=== PATIENT | female | born 1990 | race Two or more races ===

== ENCOUNTER 2024-06-06 04:17 | Emergency (ER) | payer MEDICAID, SELFPAY ==
[2024-06-06 04:21] VITALS: BMI 28.1
[2024-06-06 04:22] VITALS: BP 127/77; PULSE 75; PULSE 98; RESP 18; RESP 20; TEMP 37.5; O2SAT 98; BMI 28.1
--- NOTE | 2024-06-06 04:32 | EDRME_ITS ---
Rapid Medical Screening Exam [facility] Arrival date/time: 06/06/24 04:17 34-year-old female presents emergency department complaining of cough, sore throat, body aches, and chills for 2 days. Chief Complaint: Flu Like Symptoms Vital signs: Vital Signs Temperature 99.5 F 06/06/24 04:22 Pulse Rate 98 06/06/24 04:22 Respiratory Rate 18 06/06/24 04:22 Blood Pressure 127/77 06/06/24 04:22 Pulse Oximetry (%) 98 06/06/24 04:22 Oxygen Delivery Method Room Air 06/06/24 04:22
--- NOTE | 2024-06-06 04:33 | XR_ITS ---
Examination: PA lateral chest 2 views Technique: Upright PA lateral chest 2 views Exam date and time: June 06, 2024 0438 hrs. Comparison February 28, 2023 Indications: Coughing sore throat bodyaches chills beginning 2 days ago. Findings: Normal heart size Lungs are clear. The osseous structures are intact Impression: No active disease
[2024-06-06] MEDS: ACETAMINOPHEN 500 MG TABLET 1000 MG PO (04:58)
[2024-06-06 05:34] LABS: Strep A Rapid Negative (Negative)
--- NOTE | 2024-06-06 05:48 | EDNOTE_ITS ---
Upper Respiratory Inf. RME/HPI General Chief Complaint: Flu Like Symptoms Stated Complaint: FLU LIKE SYMPTOMS Time Seen by Provider: 06/06/24 05:06 Source: patient Arrival date/time: 06/06/24 04:17 34-year-old female KAYLEN presents emergency department complaining of cough, sore throat, body aches, and chills for 2 days. Mode of arrival: ambulatory Limitations: no limitations RME / HPI RME / HPI Narrative: 06/06/24 04:17 34-year-old female presents emergency department complaining of cough, sore throat, body aches, and chills for 2 days. Related Data Home Medications ?Medication ?Instructions ?Recorded ?Confirmed docusate sodium 100 mg capsule 100 mg PO PRN PRN Const ipation 02/06/23 02/06/23 ferrous sulfate 325 mg (65 mg 325 mg PO DAILY 02/06/23 02/06/23 iron) tablet (FeroSul) losartan 25 mg tablet 25 mg PO QDAY 02/06/2302/06 Previous Rx's ?Medication ?Instructions ?Recorded diphenhydramine HCl 25 mg capsule 25 mg PO .Nightly IA N sleep #14 02/28/23 caps cephalexin 500 mg capsule 500 mg PO TID #21 caps 07/13 acetaminophen 500 mg capsule 500 mg PO Q6H PRN pain #3 0 caps 06/06/24 ibuprofen 600 mg tablet 600 mg PO Q8H PRN pain #20 t abs 06/06/24 oseltamivir 75 mg capsule (Tamiflu) 75 mg PO Q12H 5 da ys #10 caps 06/06/24 Allergies Allergy/AdvReac Type Severity Reaction Status Date / Time No Known Allergies Allergy Verified 08/11/21 15:07 Review of Systems Review of Systems Systems Reviewed: All systems reviewed, normal except as documented Constitutional Constitutional: Reports system reviewed and no additional complaints, except as documented, Reports body ache(s), Reports chills and Denies fever(s) Eyes Eyes: Reports system reviewed and no additional complaints, except as documented and Denies change in vision ENT Ears, Nose, Mouth, and Throat: Reports system reviewed and no additional complaints, except as documented, Denies disequilibrium, Denies dizziness, Reports sore throat and Denies vertigo Cardiovascular Cardiovascular: Reports system reviewed and no additional complaints, except as documented, Denies chest pain and Denies dyspnea Respiratory Respiratory: Reports system reviewed and no additional complaints, except as documented, Denies chest congestion, Reports cough and Denies dyspnea Gastrointestinal Gastrointestinal: Reports system reviewed and no additional complaints, except as documented, Denies abdominal pain, Denies nausea and Denies vomiting Musculoskeletal Musculoskeletal: Reports system reviewed and no additional complaints, except as documented, Denies abnormal gait and Denies arthralgias Integumentary/Breasts Skin/Breast: Reports system reviewed and no additional complaints, except as documented, Denies erythema, Denies rash and Denies wounds Neurologic Neurologic: Reports system reviewed and no additional complaints, except as documented, Denies abnormal gait, Denies disequilibrium, Denies dizziness and Denies vertigo Past Medical History Past Medical History NEUROLOGIC: Negative Neurological Disorders CARDIAC: Positive Hypertension; Negative Cardiac Disorders or Congestive Heart Failure RESPIRATORY: Positive Asthma; Negative Chronic Obstructive Pulmonary Disease (COPD) GASTROINTESTINAL: Negative Gastrointestinal Disorders GENITOURINARY: Positive Genitourinary Disorders and Kidney Stones; Negative Renal Disease REPRODUCTIVE: Positive Previous Pregnancies; Negative Endometriosis, Pelvic Inflammatory Disease or Uterine Prolapse MUSCULOSKELETAL: Negative Musculoskeletal Disorders ENDOCRINE: Negative Endocrine Disorders, Diabetes Mellitus Type 1 or Diabetes Mellitus Type 2 HEMATOLOGIC: Negative Blood Disorders or Anemia PSYCHO/SOCIAL: Positive Depression and Anxiety OTHER HISTORY: Negative Blood Transfusions, Blood Transfusion Reaction, Anesthesia Reactions, Organ Transplant, Chemotherapy, Radiation Therapy, Hyperbaric Therapy, MRSA, VRSA, Vancomycin-Resistant Enterococci or Cancer Surgical History SURGICAL: Negative Cardiac Surgery, Endocrine Surgery, Thyroidectomy, Ear Surgery, Abdominal Surgery, Nephrectomy, Joint Replacement, Neurologic Surgery, Section or Organ Transplant Social History SMOKING STATUS: Former smoker SECOND HAND EXPOSURE: No SUBSTANCE USE: marijuana (Frequently) ED Exam General Limitations: Present no limitations General appearance: Present alert and in no apparent distress Head Head exam: Present atraumatic Eye Eye exam: Present normal appearance, PERRL and EOMI ENT ENT exam: Present normal exam, normal oropharynx and mucous membranes moist Neck Neck exam: Present normal inspection, full ROM and trachea midline Chest Chest inspection: Present normal inspection and symmetric chest wall rise Respiratory Respiratory exam: Present normal lung sounds bilaterally Cardiovascular Cardiovascular exam: Present regular rate, normal rhythm and normal heart sounds Abdominal Exam Abdominal exam: Present soft and normal bowel sounds Extremities Exam Extremities exam: Present normal inspection and full ROM Back Exam Back exam: Present normal inspection and full ROM Neurological Exam Neurological exam: Present alert, oriented X3 and CN II-XII intact Psychiatric Psychiatric exam: Present normal affect and normal mood Skin Skin exam: Present warm, dry, intact and normal color Course Quality Measures none Orders Category Date Time Status Bedside COVID-19 Antigen Test NOW Care 06/06/24 04:32 Completed Bedside Influenza A&B Antigen Test NOW Care 06/06/24 04:32 Completed EKG (ED ONLY) *Do not use* NOW Care 06/06/24 04:34 Completed EKG (ED Only) Stat Exams 06/06/24 04:34 Ordered XR chest 2V Stat Exams 06/06/24 04:33 Taken Strep A Rapid Stat Lab 06/06/24 04:34 Completed Acetaminophen Tab [Tylenol ES Tab] Med 06/06/24 04:34 Discontinued 1,000 mg PO X1 ONE Vital Signs Vital signs: Vital Signs Temperature 99.5 F 06/06/24 04:22 Pulse Rate 98 06/06/24 04:22 Respiratory Rate 18 06/06/24 04:22 Blood Pressure 127/77 06/06/24 04:22 Pulse Oximetry (%) 98 06/06/24 04:22 Oxygen Delivery Method Room Air 06/06/24 04:22 98% room air within normal limits Procedures -ED EKG Interpretation #1: Date of EK06/06/24 Time of EK:02 Rate: 88 Interpretation: Interpreted by me EKG Impression: Normal sinus rhythm, No acute ST-T changes, No ectopy, No ischemic changes and Normal QRS Upper Respiratory Infection MDM Narrative MDM Narrative:: 34-year-old female KAYLEN presents emergency department complaining of cough, sore throat, body aches, and chills for 2 days. ENT exam was unremarkable. No adventitious lung sounds on auscultation. Chest x-ray was unremarkable for any pneumonic infiltrates based on my interpretation. EKG sinus rhythm 88 bpm. Influenza b positive likely cause of symptoms. Patient appears nontoxic and is hemodynamically stable. Patient stable for discharge. Will treat with Tamiflu symptom onset within 48 hours. Patient data External records reviewed:: [facility] previous records Clinical information provided by:: patient Social determinants that could affect healthcare access:: none Patient has the following chronic illnesses:: See chart How is presenting disease/condition affected by chronic disease/condition?: uneffected by Evaluation data The following diagnostics were reviewed and interpreted by me:: lab results and radiology exam(s) Lab and/or radiology exams considered but not ordered:: Ordered Interpretation Summary: Interpreted by me Medications / Prescriptions Medications or Prescriptions considered but not ordered:: Ordered Medication administrations:: Medication Administration History Discontinued Medications Acetaminophen (Acetaminophen 500 Mg Tablet) 1,000 mg PO X1 ONE Stop: 06/06/24 04:35 Last Admin: 06/06/24 04:58 Dose: 1,000 mg Documented By: RC Given Consultations Consultation(s) initiated? (list below): No Diagnosis Upper Respiratory Differential Diagnosis: upper respiratory infection, otitis media, sinusitis, viral infection, bronchitis, influenza and pharyngitis Most likely diagnosis given after review of the tests above:: Influenza B Admission Indicated Admission indicated?: not indicated Admission Request Was there a request for admission?: No Disposition Plan Disposition Plan: Discharge Discharge Attestation Discharge Attestation: The patient and all family members were given an opportunity to ask questions and understood the discharge instructions. Discharge instructions specifically effects, indications for sooner follow up or return to the emergency department, and the expected course of current diagnosis. Patient condition: Stable Discharge Plan Plan Patient Disposition: HOME (Self Care) Disposition Comment: Stable Prescriptions/Referrals Prescriptions/Med Rec: New ibuprofen 600 mg tablet 600 mg PO Q8H PRN (Reason: pain) Qty: 20 0RF acetaminophen 500 mg capsule 500 mg PO Q6H PRN (Reason: pain) Qty: 30 0RF oseltamivir [Tamiflu] 75 mg capsule 75 mg PO Q12H 5 Days Qty: 10 0RF No Action diphenhydramine HCl 25 mg capsule 25 mg PO .Nightly PRN (Reason: sleep) Qty: 14 0RF cephalexin 500 mg capsule 500 mg PO TID Qty: 21 0RF ferrous sulfate [FeroSul] 325 mg (65 mg iron) tablet 325 mg PO DAILY losartan 25 mg Tablet 25 mg PO QDAY docusate sodium 100 mg capsule 100 mg PO PRN PRN (Reason: Constipation) Referrals: Mary Deluna NP [Primary Care Provider] - In 1 week Problem List Clinical Impression: Influenza B Patient/Caregiver Discharge Instructions Discharge Activity: activity as tolerated Education Materials: ED Influenza (Adult) Additional Instructions: Drink plenty of fluids and get plenty of rest. Take ibuprofen or Tylenol as needed for fever or pain. Take Tamiflu as prescribed. Follow-up with primary care provider in 2 to 3 days. Return to emergency department for any worsening symptoms or as needed. Print Language: Tanzanian Stand Alone Forms: Monik Award Info., Patient Portal Info Letter PA/BALE BREAKER OPERATOR Supervising Physician PA/BALE BREAKER OPERATOR Supervising Physician: Dr. Laura
[2024-06-06 05:57] VITALS: RESP 18
== END 2024-06-06 05:58 | disposition home or self-care (01) ==
PROVIDERS: Emergency Provider Emergency Medicine; PCP Nurse Practitioner Family
DX: J10.1 Influenza due to other identified influenza virus with other respiratory manifestations (principal)
CPT/HCPCS: 71046; 87400; 87651; 87811; 93005; 99283; A9270

== ENCOUNTER 2024-10-14 17:48 | Inpatient (IN) | payer MEDICAID, SELFPAY ==
[2024-10-14 17:49] VITALS: BP 129/86; PULSE 79; RESP 17; TEMP 36.3; O2SAT 98
[2024-10-14 17:51] VITALS: BMI 31.2
[2024-10-14 17:55] VITALS: PULSE 75; RESP 18; O2SAT 98
--- NOTE | 2024-10-14 18:18 | PD.EDADULT ---
ED General RME/HPI General Chief complaint: Back Pain/Injury Stated complaint: LOW BACK PAIN Time Seen by Provider: 10/14/24 18:13 Arrival date/time: 10/14/24 17:48 Related Data Previous Rx's ?Medication ?Instructions ?Recorded cephalexin 500 mg capsule 500 mg PO TID 10 days #30 caps 10/14/24 hydrocodone 5 mg-acetaminophen 325 1 tab PO Q6H PRN pain #10 tabs 10/14/24 mg tablet Allergies Allergy/AdvReac Type Severity Reaction Status Date / Time No Known Allergies Allergy Verified 10/14/24 20:59 ED Exam Narrative Physical exam: Physical Exam GENERAL: NAD, AAOx3 HEENT: Moist mucosa. Eyes open, symmetrical, & clear CARDIO: Heart RRR, no obvious murmurs PULM: No noted coughing/dyspnea CTA B/L, no R/W/R GI: Abdomen soft, nondistended,pain in lower quadrants SKIN/MSK/EXT: Left sided back pain, no pain on palpation. Pedal pulses present B/L NEURO: AAOx3, no focal neuro deficits, able to move all 4 extremities Course Quality Measures none Orders Category Date Time Status Place in Observation Status Routine Admission 10/14/24 20:[address] in Observation Status Routine Admission 10/14/24 21:53 Active Continuous Monitoring Routine Care 10/14/24 20:41 Ordered Insert IV NOW Care 10/14/24 18:21 Active Non-Stress Test NOW Care 10/14/24 20:41 Active Sterile Vaginal Exam PRN Care 10/14/24 20:45 Ordered Straight [In and Out Catheter] X1 Care 10/14/24 18:39 Active EKG (ED Only) Stat Exams 10/14/24 18:22 Draft US OB >= 14 weeks Fetus Stat Exams 10/14/24 19:47 Completed US renal BI Stat Exams 10/14/24 20:59 Completed Beta HCG,Quantitative Stat Lab 10/14/24 19:45 Completed CBC Stat Lab 10/14/24 19:45 Completed CBC Stat Lab 10/14/24 21:05 Completed CMP [Comprehensive Metabolic Panel] Stat Lab 10/14/24 19:45 Completed Drug Screen,Urine Stat Lab 10/14/24 19:57 Completed HCG Qualitative,Urine Stat Lab 10/14/24 22:15 Ordered HIV (1&2) Antibody Rapid Stat Lab 10/14/24 21:05 Completed Hepatitis B Surface Antigen Stat Lab 10/14/24 21:05 Completed Lactic Acid [Lactate (Lactic Acid)] Stat Lab 10/14/24 19:45 Completed Lipase Stat Lab 10/14/24 19:45 Completed Magnesium Stat Lab 10/14/24 19:45 Completed Partial Thromboplastin Time Stat Lab 10/14/24 19:45 Completed Prothrombin Time with INR Stat Lab 10/14/24 19:45 Completed Rh Testing Only Stat Lab 10/14/24 19:45 Completed Rubella, IgG Antibody Stat Lab 10/14/24 21:05 Completed Syphilis Stat Lab 10/14/24 21:05 Completed Type and Screen Stat Lab 10/14/24 21:05 Completed UA [Urinalysis] Stat Lab 10/14/24 22:15 Ordered Urine Culture Stat Lab 10/14/24 20:45 Received HYDROmorphone INJ [Dilaudid Inj] Med 10/14/24 20:58 Discontinued 2 mg IVP X1 ONE Ibuprofen Tab [Motrin Tab] Med 10/14/24 18:17 Discontinued 800 mg PO X1 ONE Morphine Inj Med 10/14/24 18:39 Discontinued 4 mg IVP X1 ONE Ondansetron Inj [Zofran Inj] Med 10/14/24 18:39 Discontinued 4 mg IVP X1 ONE Ringers Lactated 1000 ml [Lactated Ringers] 1,000 ml Med 10/14/24 20:56 Active IV 125 mls/hr Sodium Chloride 0.9% 1000 ml [Ns] 1,000 ml Med 10/14/24 18:39 Discontinued IV 999 mls/hr ceFAZolin [Ancef] 2 gm Med 10/14/24 20:59 Discontinued Sodium Chloride 0.9% [Ns] 100 ml IV X1 Vital Signs Vital signs: Vital Signs Temperature 97.4 F 10/14/24 17:49 Pulse Rate 79 10/14/24 17:49 Respiratory Rate 17 10/14/24 17:49 Blood Pressure 129/86 H 10/14/24 17:49 Pulse Oximetry (%) 98 10/14/24 17:49 Oxygen Delivery Method Room Air 10/14/24 17:49 Discharge Plan Plan Patient Disposition: Admit Acute Care w/in Hospital Problem List Clinical Impression: Abdominal pain, and infectious disease MDM Narrative MDM hospital course: 34 y/o F with no PMHX who presented to the ED due to sudden onset back pain. Patient states that symptoms started after having sexual intercourse last night and suddenly woke up in the morning with left sided back pain that is radiating to the lower abdomen. She also endorses recent constipation for x1 week. She states she think she could be as she is unsure of her LMP maybe 2 months ago. She denies fever, chills, nausea, vomiting, diarrhea, shortness of breath, palpitations, vaginal bleeding or spotting, changes in urination. 2008: Labs reviewed noted leukocytosis, lactic acid elevated, Imaging studies shows 25 week Patient was medically cleared to go to Labor and Delivery floor Clinical Information Provided by patient Medical Records Reviewed None Chronic Illness/Social Conditions which may negatively complicate care or outcome(s)-explain: None or not applicable EKG EKG Interpretation narrative: sinus rhythm, No ST changes Lab Interpretation Labs: interpreted by nc Lab(s) interpretation(s): leukocytosis, irondef anemia, lactic acidosis Imaging Imaging interpretation: none Medication Administration(s) Medication Administration History Acetaminophen (Acetaminophen 500 Mg Tablet) 1,000 mg PO Q6HR PRN PRN Reason: PAIN SCALE 1-3 (mild Stop: 11/13/24 23:30 Last Admin: 10/15/24 00:45 Dose: 1,000 mg Documented By: BY Hydromorphone HCl (Hydromorphone Inj 2 Mg/Ml Vial) 2 mg IVP Q4HR PRN PRN Reason: PAIN SCALE 7-10 (Severe Stop: 10/19/24 22:36 Lactated Ringer's (Lactated Ringers) 1,000 mls @ 125 mls/hr IV .Q8H OMAR Stop: 11/13/24 20:55 Last Admin: 10/14/24 20:57 Dose: 125 mls/hr Documented By: KG Lactated Ringer's (Lactated Ringers) 1,000 mls @ 100 mls/hr IV .Q10H [facility] Stop: 11/13/24 22:44 Lactated Ringer's (Lactated Ringers) 500 mls @ 999 mls/hr IV .Q31M PRN PRN Reason: HR tracing (Per Policy) Stop: 11/13/24 22:31 Cefazolin Sodium (Ancef 2gm Ivpb) 2 gm in 100 mls @ 100 mls/hr IV Q8HR OMAR Stop: 10/22/24 05:59 Ferric Sodium Gluconate 125 mg (/ Sodium Chloride) 110 mls @ 110 mls/hr IV X1 ONE Stop: 10/15/24 09:01 Ondansetron HCl (Ondansetron Inj 2 Mg/Ml Inj 2 Ml) 4 mg IVP Q6HR PRN; Protocol PRN Reason: NAUSEA OR VOMITING Stop: 11/13/24 22:36 Zolpidem Tartrate (Zolpidem 5 Mg Tablet) 5 mg PO HS PRN PRN Reason: INSOMNIA Stop: 11/13/24 22:58 Last Admin: 10/15/24 00:45 Dose: 5 mg Documented By: BY Discontinued Medications Acetaminophen (Acetaminophen 500 Mg Tablet) 1,000 mg PO Q6HR PRN PRN Reason: PAIN OR FEVER > 101 Stop: 11/13/24 22:55 Acetaminophen (Acetaminophen 325 Mg Tablet) 1,000 mg PO Q6HR PRN PRN Reason: PAIN SCALE 4-10(Mod-Sev Stop: 11/13/24 23:16 Hydromorphone HCl (Hydromorphone Inj 2 Mg/Ml Vial) 2 mg IVP X1 ONE Stop: 10/14/24 20:59 Last Admin: 10/14/24 21:10 Dose: 2 mg Documented By: KG Hydromorphone HCl (Hydromorphone Inj 2 Mg/Ml Vial) 2 mg IVP Q4HR PRN PRN Reason: PAIN Stop: 10/19/24 22:36 Sodium Chloride (Ns) 1,000 mls @ 999 mls/hr IV .Q1H1M ONE Stop: 10/14/24 19:39 Last Infusion: 10/14/24 20:38 Dose: Infused Documented By: Admin: 10/14/24 19:44 Dose: 999 mls/hr Documented By: BD Cefazolin Sodium 2 gm/ Sodium (Chloride) 100 mls @ 200 mls/hr IV X1 ONE Stop: 10/14/24 21:28 Last Admin: 10/14/24 21:13 Dose: 200 mls/hr Documented By: KG Ferric Sodium Gluconate 125 mg (/ Sodium Chloride) 110 mls @ 110 mls/hr IV X1 ONE Stop: 10/14/24 23:22 Ibuprofen (Ibuprofen Tab 400 Mg Tablet) 800 mg PO X1 ONE Stop: 10/14/24 18:18 Last Admin: 10/14/24 18:49 Dose: Not Given Documented By: ER Non-Admin Reason: Discontinued Morphine Sulfate (Morphine Sulf Inj 10 Mg/Ml Vial) 4 mg IVP X1 ONE Stop: 10/14/24 18:40 Last Admin: 10/14/24 19:43 Dose: 4 mg Documented By: BD Ondansetron HCl (Ondansetron Inj 2 Mg/Ml Inj 2 Ml) 4 mg IVP X1 ONE; Protocol Stop: 10/14/24 18:40 Last Admin: 10/14/24 19:43 Dose: 4 mg Documented By: BD see above Diagnosis Differential diagnosis: pre-term labor, kidney stones, pyelonephritis Dispositon Disposition comments: Medically cleared can have further work up in Labor and Delivery floor.
--- NOTE | 2024-10-14 18:22 | EKG_ITS ---
[facility] Test Date: 2024-10-14 Pat Name: NOAH BOOTHE Department: Room: - Gender: Female Equestrian Trainer: : 1990 Requested By: Srinivasan Arroyo Order Number: [id number] Reading MD: Srinivasan Arroyo Measurements Intervals [place] Rate: 72 P: 265 MD: 125 QRS: 1 QRSD: 79 T: 34 QT: 414 QTc: 453 Interpretive Statements JUNCTIONAL RHYTHM ABNORMAL RHYTHM ECG Compared to ECG 02/28/2023 17:10:40 Junctional rhythm now present Sinus rhythm no longer present T-wave abnormality no longer present /store/S0/[id number].pdf
[2024-10-14] MEDS: ONDANSETRON INJ 2 MG/ML INJ 2 ML 4 MG IVP (19:43)
[2024-10-14] MEDS: MORPHINE SULF INJ 10 MG/ML VIAL 4 MG IVP (19:43)
[2024-10-14] MEDS: SODIUM CHLORIDE 0.9% 1000 ML 1,000 ML 999 ML IV (19:44)
--- NOTE | 2024-10-14 19:47 | XR_ITS ---
Examination: Complete OB ultrasound greater than 14 weeks Date and time of exam: October 14, 2024, 195 hours INDICATIONS: Pelvic pain and lower back pain today Findings: Viable intrauterine single fetus with single amniotic sac presentation cephalic Cardiac motion 138 BPM Placenta anterior grade 1 Umbilical cord insertion 3 vessel. Amniotic fluid index 12.9 cm spine maternal left Cervix 4.3 cm Ovaries obscured by bowel gas. Composite estimated gestational age based on BPD, head circumference, abdominal circumference, femur length is 26 weeks 2 days Estimated weight 986.5 g. Survey of intracranial anatomy, spinal anatomy, abdominal anatomy, four-chamber heart performed with no abnormalities identified. Impression: Viable intrauterine gestation cephalic presentation.
[2024-10-14 20:00] LABS: Lactate (Lactic Acid) 2.1 mMol/L (0.4-2.0)
[2024-10-14 20:01] LABS: Basophils # (Auto) 0.1 Thou/mm3 (0.0-0.2); Basophils % (Auto) 0 % (0-2.5); Eosinophils # (Auto) 0.1 Thou/mm3 (0.0-0.5); Eosinophils % (Auto) 1 % (0-10); Hematocrit 28.7 % (36.0-46.0); Hemoglobin 8.9 g/dL (12.0-16.0); Immature Granulocytes Auto 0.07 Thou/mm3 (0.00-0.00); Lymphocytes # (Auto) 1.6 Thou/mm3 (1.0-4.8); Lymphocytes % (Auto) 13 % (10-50); Mean Corpuscular HGB Conc 31.0 g/dl (31.0-37.0); Mean Corpuscular Hemoglobin 23.4 pg (25.0-35.0); Mean Corpuscular Volume 75 fL (80-100); Monocytes # (Auto) 0.6 Thou/mm3 (0.0-0.8); Monocytes % (Auto) 5 % (0-12); Neutrophils # (Auto) 9.9 Thou/mm3 (1.8-7.7); Neutrophils % (Auto) 81 % (37-80); Nucleated Red Blood Cell # 0.00 Thou/mm3 (0.00-0.00); Nucleated Red Blood Cell % 0 /100 WBC (0); Platelet Count 388 Thou/mm3 (140-440); RDW Standard Deviation 42.5 fL (36.4-46.3); Red Blood Count 3.81 Miln/mm3 (4.00-5.20); White Blood Count 12.2 Thou/mm3 (3.6-11.0)
[2024-10-14 20:07] LABS: Collection Type, Urine Clean Catch
[2024-10-14 20:12] LABS: Amorphous Crystals,Urine Present (Absent); Bacteria,Urine Rare; Bilirubin,Urine Negative (Negative); Blood,Urine Negative (Negative); Clarity,Urine Clear (Clear/Hazy); Color,Urine Lt-Yellow (Lt Yel-Yel); Glucose, Urine Negative (Negative); Ketones,Urine Negative (Negative); Leukocyte Esterase,Urine Positive (Negative); Nitrite,Urine Negative (Negative); PH,Urine 6.5 (5.0-7.0); Protein,Urine Negative (Neg - Trace); RBC,Urine 5 /hpf (0-3); Specific Gravity,Urine 1.015 (1.001-1.035); Squamous Epithelial Cell,Urine 8 /hpf (0-5); Urobilinogen,Urine Negative mg/dL (0.0-1.0); WBC,Urine 11 /hpf (0-5)
[2024-10-14 20:19] LABS: INR 0.9 (0.9-1.3); Partial Thromboplastin Time 25.9 Seconds (22.0-36.0); Prothrombin Time 10.3 Seconds (9.0-12.2)
[2024-10-14 20:26] LABS: Alanine Aminotransferase 9 U/L (10-49); Albumin, Serum 4.0 gm/dL (3.5-5.0); Albumin/Globulin Ratio 1.5 (1.2-2.2); Alkaline Phosphatase 83 U/L (46-116); Anion Gap 9 (7-16); Aspartate Amino Transferase 13 U/L (0-34); BUN/Creatinine Ratio 10 Ratio (12-20); Bilirubin,Total 0.5 mg/dL (0.3-1.2); Blood Urea Nitrogen 6 mg/dL (9-23); Calcium 9.3 mg/dL (8.3-10.6); Calcium (Corrected) 9.3 mg/dL (8.5-10.1); Carbon Dioxide 23.5 mMol/L (20.0-31.0); Chloride 109 mMol/L (98-107); Creatinine (Component) 0.6 mg/dL (0.6-1.3); Estimated Creatinine Clearance 116.4 mL/min (>60); Globulin 2.6 gm/dL (2.3-3.5); Glucose 108 mg/dL (74-106); Lipase 31 U/L (12-53); Magnesium 1.5 mg/dL (1.6-2.6); Osmolality,Calculated 279 (275-295); Potassium 3.5 mMol/L (3.4-5.1); Sodium 141 mMol/L (136-145); Total Protein 6.6 gm/dL (5.7-8.2); eGFR > 60 See Note
[2024-10-14 20:41] VITALS: BMI 30.8
--- NOTE | 2024-10-14 20:41 | PC.NURSE ---
pt left up to ob at 2039
[2024-10-14 20:52] LABS: Amphetamine/Methamp Scrn,U Positive (Negative); Barbiturate Screen,Urine Negative (Negative); Benzodiazepines Screen,Urine Negative (Negative); Benzoylecgonine Screen, Ur Negative (Negative); Fentanyl Screen,Urine Negative (Negative); Opiate Screen,Urine Negative (Negative); THC Screen,Urine Positive (Negative)
[2024-10-14] MEDS: RINGERS LACTATED 1000 ML 1,000 ML 125 ML IV (20:57)
[2024-10-14 20:58] VITALS: BP 139/91; PULSE 72; RESP 100; RESP 20; TEMP 36.5
--- NOTE | 2024-10-14 20:59 | XR_ITS ---
Examination: Retroperitoneal ultrasound, complete Technique: Multiple high resolution grayscale images of the retroperitoneum obtained, including kidneys and bladder. Exam date and time:October 24, 2024 1057 hours INDICATIONS: Bilateral flank pain today FINDINGS: Right kidney 14.7 cm renal cortex 1.9 cm Mild right hydronephrosis Multiple renal calculi, including 9 mm in the mid pole Left kidney 14.1 cm cortex 1.6 cm Moderate hydronephrosis [id number] bilateral linear parenchymal scar formation No bladder mass, bladder prevoid volume 395.8 cc IMPRESSION: Mild right and moderate left hydronephrosis Right renal calculi, the largest in the midpole 9 mm
[2024-10-14 21:01] LABS: Beta HCG,Quantitative 35162 mIU/mL (<5.0)
[2024-10-14] MEDS: HYDROmorphone INJ 2 MG/ML VIAL IVP (21:10)
[2024-10-14 21:18] LABS: Basophils # (Auto) 0.0 Thou/mm3 (0.0-0.2); Basophils % (Auto) 0 % (0-2.5); Eosinophils # (Auto) 0.0 Thou/mm3 (0.0-0.5); Eosinophils % (Auto) 0 % (0-10); Hematocrit 26.8 % (36.0-46.0); Immature Granulocytes Auto 0.06 Thou/mm3 (0.00-0.00); Lymphocytes # (Auto) 1.1 Thou/mm3 (1.0-4.8); Lymphocytes % (Auto) 9 % (10-50); Mean Corpuscular HGB Conc 31.7 g/dl (31.0-37.0); Mean Corpuscular Hemoglobin 23.7 pg (25.0-35.0); Mean Corpuscular Volume 75 fL (80-100); Monocytes # (Auto) 0.5 Thou/mm3 (0.0-0.8); Monocytes % (Auto) 4 % (0-12); Neutrophils # (Auto) 11.2 Thou/mm3 (1.8-7.7); Neutrophils % (Auto) 86 % (37-80); Nucleated Red Blood Cell # 0.00 Thou/mm3 (0.00-0.00); Nucleated Red Blood Cell % 0 /100 WBC (0); Platelet Count 364 Thou/mm3 (140-440); RDW Standard Deviation 42.7 fL (36.4-46.3); Red Blood Count 3.58 Miln/mm3 (4.00-5.20); White Blood Count 12.9 Thou/mm3 (3.6-11.0)
[2024-10-14 21:21] LABS: Hemoglobin 8.5 g/dL (12.0-16.0)
--- NOTE | 2024-10-14 21:29 | ESPR_ITS ---
Addendum Progress Note Addendum Date of report being addended: 10/14/24 Narrative: The patient is a 34-year-old who thought her last menstrual period was sometime in April who presented to the ER with flank tenderness and lower abdominal pain earlier today. Per the ER notes notes, she has a history of pyelonephritis and kidney stones. She is approximately 25 to 26 weeks today by an ultrasound performed in the ER. She denies vaginal bleeding loss of fluids or contractions. She has had no care this . Her drug screen has been positive for marijuana in the past. She was sent up to the ER once they found out she was 25 weeks for further management. On evaluation in triage, the patient is quite uncomfortable reporting left flank tenderness. She denies nausea or vomiting, she is quite thirsty. She denied fevers or chills. Her exam is suggestive of early pyelonephritis versus nephrolithiasis. Her labs from the ER reviewed revealing a white count of 12.2 with a a neutrophil percentage of 81%. She is anemic with a hemoglobin 8.9 platelets are normal her electrolyte panel is normal her BUN/creatinine is normal her AST LFT is normal her temperature in the ER is 97 4. Her blood pressure is stable. Her urinalysis reveals some red cells and white cells. Urine culture was sent down. The plan will be for renal ultrasound, IV fluids and Ancef. IV pain meds as needed. Hopefully the patient will be able to go home on p.o. pain medication to establish care with an NEEDLE PUNCH MACHINE OPERATOR HELPER. On admission her abdomen is gravid nontender she has some flank tenderness of her left side more than her right side. She appears older than her stated age. She is pale. Extremities show no significant edema or erythema. Drug screen tonight came back positive for methamphetamines and marijuana. The patient will have all labs ordered.
--- NOTE | 2024-10-14 21:54 | PD.LDANTE ---
Documentation for date of: 10/14/24 OB Labor/Induct. HPI History of Present Illness Chief complaint: Flank pain, 26 weeks : 7 Para: 4 Term pregnancies: 3 pregnancies: 1 Living children: 4 History of Abortions: Spontaneous and Elective: 1 History of Vaginal deliveries: 5 History of sections: No History of : No MARYELLEN: 01/18/25 Gestational Age (weeks): 25 History of present illness: Patient is a 34-year-old (?) G7P 3799 who presented to the ER with flank pain. She did not know she was until today. She is approximately 25 weeks . Her exam and history are suggestive of pyelonephritis versus nephrolithiasis. She was admitted for IV pain control and IV antibiotics. Of note, she has had no care this . All labs were drawn and pending. She has a live intrauterine with a normal structural survey measuring 25-1/2 weeks from this evening. She is requiring IV doses of Dilaudid. She is afebrile. Her white count is 12.2 with 81% neutrophils. Her urine has some red cells and white cells. Her drug screen is positive for methamphetamines and marijuana. History of Present Dating criteria: based on 2nd trimester US only Adequate Care: No Ultrasounds: other (Normal limited 25-week ultrasound tonight) Obstetrical complications: gestational hypertension Narrative: Patient has a history of kidney stones, pyelonephritis, hypertension and preeclampsia. She has had no care this . She has current polysubstance abuse. She also has a history of Zoloft and an accidental overdose of Zoloft per ER notes. Labs Maternal Blood Type: O Pos Labs: Unknown: RPR, Hepatitis B, Rubella Titre, HIV, Chlamydia, Gonorrhea, Herpes Type 1, Herpes Type 2, Group Beta Strep and Covid-19 Review of Systems Review of Systems Narrative Review of Systems: Patient reports flank pain. No fevers or chills. No diarrhea. No bleeding no loss of fluids she is abran on the monitor Past Medical History Surgical History SURGICAL: Negative Section Meds Home Medications and Allergies Allergies Allergy/AdvReac Type Severity Reaction Status Date / Time No Known Allergies Allergy Verified 10/14/24 20:59 OB Exam Physical Exam Vital signs: Temp Pulse Resp BP Pulse Ox O2 Del Method 97.7 F 72 20 139/91 H 98 Room Air 10/14/24 20:58 10/14/24 20:58 10/14/24 20:58 10/14/24 20:58 10/14/24 17:49 10/14/24 17:49 Narrative: Patient is in a lot of pain. Requiring IV Dilaudid. She does answer questions appropriately Detailed Labor and Delivery Exam monitor accelerations: 10x10 monitor decelerations: None senior care variability: Average (6-10) Contraction frequency (min): Irregular Tachysystole: No Contraction intensity: Mild OB Results Labs 10/14/24 21:05 10/14/24 19:45 Labs: Short CBC 10/14/24 10/14/24 Range/Units 19:45 21:05 WBC 12.2 H 12.9 H (3.6-11.0) Thou/mm3 Hgb 8.9 L 8.5 L (12.0-16.0) g/dL Hct 28.7 L 26.8 L (36.0-46.0) % Plt Count 388 364 (140-440) Thou/mm3 BMP 10/14/24 19:45 Sodium 141 Potassium 3.5 Chloride 109 H Carbon Dioxide 23.5 BUN 6 L Creatinine 0.6 Glucose 108 H Calcium 9.3 Liver Function 10/14/24 Range/Units 19:45 Total Bilirubin 0.5 (0.3-1.2) mg/dL AST 13 (0-34) U/L ALT 9 L (10-49) U/L Alkaline Phosphatase 83 (46-116) U/L Albumin 4.0 (3.5-5.0) gm/dL Urine 10/14/24 Range/Units 19:57 Urine Color Lt-Yellow (Lt Yel-Yel) Urine Clarity Clear (Clear/Hazy) Urine pH 6.5 (5.0-7.0) Ur Specific [place] 1.015 (1.001-1.035) Urine Protein Negative (Neg - Trace) Urine Glucose (UA) Negative (Negative) OB Assessment & Plan Assessment and Plan (1) Supervision of high risk in third trimester: Status: Acute (2) Kidney stones: Status: Acute (3) Pyelonephritis: Status: Acute (4) AMA (advanced maternal age) multigravida 35+: Status: Acute (5) No care in current in second trimester: Status: Acute (6) Polysubstance abuse: Status: Acute Additional Plan Additional Plan Comment: Admit patient. IV pain meds as needed. Ancef for now. Await urine cultures.
[2024-10-14 22:01] LABS: Hepatitis B Surface Antigen Non Reactive (Non React); Rubella, IgG Antibody Reactive (Immune)
[2024-10-14 22:04] LABS: Syphilis Nonreactive (Nonreactive)
[2024-10-14 22:35] VITALS: BMI 30.7
[2024-10-14 22:54] LABS: HIV (1&2) Antibody Rapid Non-Reactive
[2024-10-14 22:55] LABS: Reflex Lactate? Y
[2024-10-14 23:30] VITALS: BP 134/85; PULSE 68; RESP 18; TEMP 36.4; O2SAT 99
[2024-10-15] VITALS (9 sets, daily range): BP systolic 93–122; BP diastolic 55–70; PULSE 81–98; RESP 18–20; TEMP 36.2–37.1; O2SAT 100
[2024-10-15] MEDS: ZOLPIDEM 5 MG TABLET PO ×2 (00:45→20:45)
[2024-10-15] MEDS: ACETAMINOPHEN 500 MG TABLET 1000 MG PO ×3 (00:45→12:36)
[2024-10-15] MEDS: ceFAZolin/D5W 2 GM IV 2 GM/100 ML BAG IV (04:54)
[2024-10-15] MEDS: HYDROmorphone INJ 2 MG/ML VIAL 1 MG IVP ×2 (06:01→20:41)
--- NOTE | 2024-10-15 07:48 | ESPR_ITS ---
Documentation for date of: 10/15/24 BUILDING MAINTENANCE SUPERVISOR Subjective Subjective Interval history: Patient is a 34-year-old (?) G7P 9090 who presented to the ER with flank pain. She did not know she was until today. She is approximately 25 weeks . Her exam and history are suggestive of pyelonephritis versus nephrolithiasis. She was admitted for IV pain control and IV antibiotics. Of note, she has had no care this . All labs were drawn and pending. She has a live intrauterine with a normal structural survey measuring 25-1/2 weeks from this evening. She is requiring IV doses of Dilaudid. She is afebrile. Her white count is 12.2 with 81% neutrophils. Her urine has some red cells and white cells. Her drug screen is positive for methamphetamines and marijuana. Exam Vital Signs Temp Pulse Resp BP Pulse Ox O2 Del Method 97.2 F 98 18 121/70 100 Room Air 10/15/24 06:15 10/15/24 04:35 10/15/24 04:35 10/15/24 04:35 10/15/24 04:35 10/15/24 04:35 Narrative Exam Patient feels better after IV antibiotics and pain medications. She is tolerating a regular diet. She is voiding without difficulty she is passing flatus. She is got flank pain worse on the left Routine Respiratory Exam Comments: Clear to auscultation bilaterally Routine Cardiovascular Exam Comments: Regular rate and rhythm Routine Abdominal Exam Comments: Gravid consistent with 25 weeks gestation Routine Extremities Exam Comments: Nontender or edema Urinary Catheter Management Cath placed during this visit: no BUILDING MAINTENANCE SUPERVISOR - PN: Obj Data Labs 10/14/24 21:05 10/14/24 19:45 Labs: Laboratory Results - last 24 hr 10/14/24 10/14/24 10/14/24 19:45 19:57 21:05 WBC 12.2 H 12.9 H RBC 3.81 L 3.58 L Hgb 8.9 L 8.5 L Hct 28.7 L 26.8 L MCV 75 L 75 L MCH 23.4 L 23.7 L MCHC 31.0 31.7 RDW Std Deviation 42.5 42.7 Plt Count 388 364 Neut % (Auto) 81 H 86 H Lymph % (Auto) 13 9 L [place] % (Auto) 5 4 Eos % (Auto) 1 0 Baso % (Auto) 0 0 Neut # (Auto) 9.9 H 11.2 H Lymph # (Auto) 1.6 1.1 [place] # (Auto) 0.6 0.5 Eos # (Auto) 0.1 0.0 Baso # (Auto) 0.1 0.0 Immature Gran # (Auto) 0.07 H 0.06 H Absolute Nucleated RBC 0.00 0.00 Immature Gran % 1 H 1 H Nucleated RBC % 0 0 PT 10.3 INR 0.9 APTT 25.9 Sodium 141 Potassium 3.5 Chloride 109 H Carbon Dioxide 23.5 Anion Gap 9 BUN 6 L Creatinine 0.6 Estim Creat Clear Calc 116.4 eGFR > 60 BUN/Creatinine Ratio 10 L Glucose 108 H Calculated Osmolality 279 Lactic Acid 2.1 H Calcium 9.3 Corrected Calcium 9.3 Magnesium 1.5 L Total Bilirubin 0.5 AST 13 ALT 9 L Alkaline Phosphatase 83 Total Protein 6.6 Albumin 4.0 Globulin 2.6 Albumin/Globulin Ratio 1.5 Lipase 31 Beta HCG, Quant 10930 Ur Collection Type Clean Catch Urine Color Lt-Yellow Urine Clarity Clear Urine pH 6.5 Ur Specific [place] 1.015 Urine Protein Negative Urine Glucose (UA) Negative Urine Ketones Negative Urine Blood Negative Urine Nitrite Negative Urine Bilirubin Negative Urine Urobilinogen (Auto) Negative Ur Leukocyte Esterase Positive Urine RBC 5 H Urine WBC 11 H Ur Squamous Epith Cells 8 H Amorphous Crystals Present A Urine Bacteria Rare Urine Opiates Screen Negative Urine Fentanyl Screen Negative Ur Barbiturates Screen Negative U Amphetamin/Meth Scrn Positive A U Benzodiazepines Scrn Negative U Cocaine Metab Screen Negative U Marijuana (THC) Screen Positive A Syphilis Serology Nonreactive Hep Bs Antigen Non Reactive HIV 1&2 Antibody Rapid Non-Reactive Rubella IgG Antibody Reactive (Immune) Blood Type O Positive Rh Interpretation Positive Antibody Screen NEGATIVE Blood Bank Wristband ID Yes BUILDING MAINTENANCE SUPERVISOR - A/P Assessment and plan (1) Supervision of high risk in third trimester: Status: Acute (2) Kidney stones: Status: Acute Assessment and plan: Strain urine Opioid analgesic as needed (3) Pyelonephritis: Status: Acute Assessment and plan: Change antibiotic coverage to Rocephin 2 g every 24 hours DC Ancef. (4) AMA (advanced maternal age) multigravida 35+: Status: Acute (5) No care in current in second trimester: Status: Acute (6) Polysubstance abuse: Status: Acute Time Spent With Patient Time: Total time spent is greater than 50% in coordination of care (as documented) at patient's floor/unit and/or counseling patient: Time with patient: 25 - 35 minutes
[2024-10-15] MEDS: cefTRIAXone 2 GM in SODIUM CHLORIDE 0.9% (Popper) 50 ML IV (08:32)
[2024-10-15] MEDS: FERRIC SOD GLUC INJ 125 MG in SODIUM CHLORIDE 0.9% 100 ML 110 MG IV (09:26)
[2024-10-15] MEDS: HYDROmorphone INJ 2 MG/ML VIAL IVP (16:56)
[2024-10-15] MEDS: ACETAMINOPHEN IVPB 1,000 MG/100 ML VIAL 250 MG IV (20:45)
[2024-10-15] MEDS: ONDANSETRON INJ 2 MG/ML INJ 2 ML 4 MG IVP (20:50)
[2024-10-15] MEDS: RINGERS LACTATED 1000 ML 1,000 ML 125 ML IV (21:12)
[2024-10-16 00:14] VITALS: BP 112/58; PULSE 81; RESP 18; TEMP 37.1
[2024-10-16 04:19] VITALS: RESP 18; TEMP 36.9
[2024-10-16] MEDS: RINGERS LACTATED 1000 ML 1,000 ML 125 ML IV (05:35)
[2024-10-16] MEDS: ACETAMINOPHEN IVPB 1,000 MG/100 ML VIAL 250 MG IV (05:36)
[2024-10-16 08:55] VITALS: BP 114/53; PULSE 80; RESP 16; TEMP 36.9
--- NOTE | 2024-10-16 08:57 | ESPR_ITS ---
Documentation for date of: 10/16/24 HEAVY ANTIARMOR WEAPONS INFANTRYMAN Subjective Subjective Interval history: Patient has been afebrile for over 24 hours. No fevers or subjective chills. Interval history: Patient is a 34-year-old (?) G7P 3324 who presented to the ER with flank pain. She did not know she was until today. She is approximately 25 weeks . Her exam and history are suggestive of pyelonephritis versus nephrolithiasis. She was admitted for IV pain control and IV antibiotics. Of note, she has had no care this . All labs were drawn and pending. She has a live intrauterine with a normal structural survey measuring 25-1/2 weeks from this evening. She is requiring IV doses of Dilaudid. She is afebrile. Her white count is 12.2 with 81% neutrophils. Her urine has some red cells and white cells. Her drug screen is positive for methamphetamines and marijuana. Exam Vital Signs Temp Pulse Resp BP Pulse Ox O2 Del Method 98.4 F 81 18 112/58 L 100 Room Air 10/16/24 04:19 10/16/24 00:14 10/16/24 04:19 10/16/24 00:14 10/15/24 20:30 10/15/24 04:35 Constitutional Constitutional: no acute distress Routine HEENT Exam Head: Present normocephalic and atraumatic Eye: Present EOMI and PERRL ENT: Present mucous membranes moist Routine Neck Exam Neck: Present supple and trachea midline Routine Respiratory Exam Respiratory: Present chest non-tender, lungs clear, normal breath sounds and no resp distress Routine Cardiovascular Exam Cardiovascular: Present RRR Routine Abdominal Exam Abdominal: Present soft and normoactive bowel sounds Routine Extremities Exam Extremities: Present full ROM Routine Skin Exam Skin: Present intact and dry Routine Neurological Exam Neurological: Present alert, oriented X3 and CN II-XII intact Routine Psychiatric Exam Psychiatric: Present normal affect and normal thought process Urinary Catheter Management Cath placed during this visit: no HEAVY ANTIARMOR [employer] INFANTRYMAN - PN: Obj Data Labs 10/14/24 21:05 10/14/24 19:45 HEAVY ANTIARMOR [employer] INFANTRYMAN - A/P Assessment and plan (1) Supervision of high risk in third trimester: Status: Acute (2) Kidney stones: Status: Acute (3) Pyelonephritis: Status: Acute (4) AMA (advanced maternal age) multigravida 35+: Status: Acute (5) No care in current in second trimester: Status: Acute Assessment and plan: Discharge home on oral antibiotics. Patient provided information for facilities where she can establish URGENT CARE care ER precautions reviewed for return to the hospital if any new symptoms arise or there is worsening of her fever or pain (6) Polysubstance abuse: Status: Acute Time Spent With Patient Time: Total time spent is greater than 50% in coordination of care (as documented) at patient's floor/unit and/or counseling patient: Time with patient: less than 15 minutes
--- NOTE | 2024-10-16 08:59 | PD.LDDS ---
DS: Providers Provider Date of admission: 10/14/24 22:32 Primary care physician: Physician No Primary/Family Admitting Provider: Irlanda Dolan MD ([facility]) Attending Provider on Admission: Tahir Christensen MD Attending Provider on DC: Tahir Christensen MD Discharging Provider: Tahir Christensen MD DS: Diagnosis Discharge Diagnosis (1) Polysubstance abuse: Status: Acute (2) No care in current in second trimester: Status: Acute (3) AMA (advanced maternal age) multigravida 35+: Status: Acute (4) Kidney stones: Status: Acute Problem List Completed Was Problem List Reviewed/Reconciled?: Yes Summary/Hosp Course Brief History: Patient has been afebrile for over 24 hours. No fevers or subjective chills. Interval history: Patient is a 34-year-old (?) G7P 0506 who presented to the ER with flank pain. She did not know she was until today. She is approximately 25 weeks . Her exam and history are suggestive of pyelonephritis versus nephrolithiasis. She was admitted for IV pain control and IV antibiotics. Of note, she has had no care this . All labs were drawn and pending. She has a live intrauterine with a normal structural survey measuring 25-1/2 weeks from this evening. She is requiring IV doses of Dilaudid. She is afebrile. Her white count is 12.2 with 81% neutrophils. Her urine has some red cells and white cells. Her drug screen is positive for methamphetamines and marijuana. Time Spent with Patient Time attestation: Total time spent providing and/or coordinating discharge services: Exam Vital Signs Temp Pulse Resp BP Pulse Ox O2 Del Method 98.4 F 81 18 112/58 L 100 Room Air 10/16/24 04:19 10/16/24 00:14 10/16/24 04:19 10/16/24 00:14 10/15/24 20:30 10/15/24 04:35 Discharge Plan Plan Patient Disposition: HOME (Self Care) Patient condition on transfer: Stable Prescriptions/Referrals Prescriptions/Med Rec: New hydrocodone-acetaminophen 5-325 mg tablet 1 tab PO Q6H MDD 4 PRN (Reason: pain) Qty: 10 0RF cephalexin 500 mg capsule 500 mg PO TID 10 Days Qty: 30 0RF Referrals: No Primary/Family,Physician [Primary Care Provider] - Patient/Caregiver Discharge Instructions Meds to Beds: Yes Discharge Activity: activity as tolerated Education Materials: Back Pain During , What Is Care?, Anemia During , Addiction Ask These Questions, Addiction: Getting Help, Addiction Recovery Counseling, Be Smoke-Free During , ED Kidney Stone w/ Colic Print Language: [place] Stand Alone Forms: Monik Award Info., Patient Portal Info Letter Discharge Order Discharge Orders: Discharge (Routine); Ordered 10/16/24 Ordered By: Tahir Christensen Planned Discharge Date 10/16/24
== END 2024-10-16 09:45 | disposition home or self-care (01) | DRG 566 ==
LOC: SERX 20:36 → S4SX 20:43
PROVIDERS: Admitting Provider Obstetrics & Gynecology; Emergency Provider Student in an Organized Health Care Education/Training Program; Visit Provider Obstetrics & Gynecology
DX: O23.02 Infections of kidney in pregnancy, second trimester (principal); N20.0 Calculus of kidney; Z3A.26 26 weeks gestation of pregnancy; O13.9 Gestational [pregnancy-induced] hypertension without significant proteinuria, unspecified trimester; O26.832 Pregnancy related renal disease, second trimester; O99.012 Anemia complicating pregnancy, second trimester; O99.282 Endocrine, nutritional and metabolic diseases complicating pregnancy, second trimester; Z87.442 Personal history of urinary calculi; E87.20 Acidosis, unspecified
CPT/HCPCS: 36415; 59025; 76770; 76805; 80053; 80307; 81001; 81025; 83605; 83690; 83735; 83880; 84702; 85025; 85610; 85730; 86703; 86762; 86780; 86850; 86900; 86901; 87077; 87086; 87186; 87340; 96361; 96374; 96375; 99284; J0131; J0689; J0690; J0696; J1171; J2270; J2405; J2916; J7030; J7050; J7120; A9270

== ENCOUNTER 2024-12-08 15:30 | Outpatient (CLI) | payer MEDICAID, SELFPAY ==
[2024-12-08 15:47] VITALS: BMI 32.1
--- NOTE | 2024-12-08 15:53 | XR_ITS ---
Examination: Biophysical profile, ultrasound Date and time of exam: December 08, 2024, 1609 hrs. Indications: Onset pelvic pressure today. Technique: Multiple transabdominal sonographic images of the pelvis abdomen obtained. Attention is directed to the breathing movement, gross body movement, amniotic fluid volume and tone. Findings: Amniotic fluid index 11.7 cm. Total biophysical profile is 8 of 8. breathing movement is 2. Gross body movement is 2. tone is 2. Qualitative amniotic fluid volume is 2 Impression: Biophysical profile is 8 of 8.
[2024-12-08 15:54] VITALS: BP 117/62; PULSE 86; RESP 18; RESP 98; TEMP 36.7
[2024-12-08 16:22] VITALS: BP 124/79; PULSE 72
[2024-12-08 16:31] LABS: ROM Kit Exp Date# 01/18/28; ROM Kit Lot # 58104371; ROM Swab Mixed By: FS; Rupture of Fetal Membranes Negative (Negative); Swb Mxed in Solvent 1 min? Yes
[2024-12-08 16:49] LABS: FFN Specimen Descripton Clr Colrless Aqueous; Fetal Fibronectin Positive (Negative)
[2024-12-08 16:52] VITALS: BP 128/81; PULSE 77
[2024-12-08] MEDS: BETAMET ACET/BETAMET NA PH (Celestone) 6 MG/ML VIAL 12 MG IM (16:52)
[2024-12-08 17:22] VITALS: BP 114/66; PULSE 73
[2024-12-09 11:09] LABS: BVAG Candida Positive (Negative); Bacterial Vaginosis Markers Negative (Negative); Candida glabrata Negative (Negative); Candida krusei PCR Negative (Negative); Trichomonas Negative (Negative)
== END 2024-12-08 18:03 | disposition home or self-care (01) ==
LOC: S4S1 15:31 → S4SX 15:31
PROVIDERS: Referring Provider Specialist; Visit Provider Specialist
DX: O26.893 Other specified pregnancy related conditions, third trimester (principal); Z3A.34 34 weeks gestation of pregnancy; R10.2 Pelvic and perineal pain
CPT/HCPCS: 59025; 76819; 81514; 82731; 84112; 96372; J0702

== ENCOUNTER 2024-12-13 15:47 | Observation (INO) | payer MEDICAID, SELFPAY ==
[2024-12-13 16:00] VITALS: BMI 31.2
[2024-12-13 16:12] VITALS: BP 126/86; PULSE 100
[2024-12-13 16:14] VITALS: BP 126/86; PULSE 100; RESP 18; RESP 99; TEMP 37.1
[2024-12-13 16:29] VITALS: BP 108/59; PULSE 86
[2024-12-13 16:44] VITALS: BP 115/54; PULSE 89
[2024-12-13 16:56] LABS: ROM Kit Exp Date# 011828; ROM Kit Lot # 5810437; ROM Swab Mixed By: NUNEE1; Swb Mxed in Solvent 1 min? Yes
[2024-12-13 16:58] LABS: Rupture of Fetal Membranes Negative (Negative)
[2024-12-13 16:59] VITALS: BP 117/76; PULSE 94
[2024-12-13 17:15] VITALS: BP 126/80; PULSE 97
--- NOTE | 2024-12-13 17:22 | ESPR_ITS ---
Documentation for date of: 12/13/24 OB Labor Progress Note Pelvic Exam Amniotic membrane status: Leaking Assessment and Plan Comments: Triage Note Marielos is a 34yo with SIUP at approx 34wk presenting to L&D for leakage of fluid, low back pain. No regular ctx, no vaginal bleeding. Normal movement. She was seen on 12/08 for similar complaints and had +Candidiasis swab, but has not yet treated herself. complicated by: No care UDS +methamphetamines and THC on 10/14/24 Admission for pyelonephritis at 25wk AMA (age 34) ROS negative other than what was described above. Vitals wnl, afebrile General: well developed, well nourished, no acute distress, conversant Cardiac: normal heart rate Lungs: breathing without distress Abdomen: soft, gravid, non-tender, no rebound or guarding Extremities: no edema of BLE SCE: ft/thick/high NST: Reactive, +accels, no decels, mod tom Cesar [place]avez: no regular ctx pattern Labs: Amnisure: negative (on 12/08 and again today 12/13) +Candidiasis on 12/08 Assessment: Marielos is a 34yo with SIUP at approx 34wk with no evidence of PPROM or labor. AmniSure negative. Vitals wnl, benign exam. Reassuring status. Plan: -supervisor lending activities 7 day [id number] monostat (or generic) vaginal candidiasis treatment and take full course -Establish OB care immediately. Call [facility] to get an appointment. -Discussed return precautions -Safe for discharge home at this time Ronda Alonso MD
== END 2024-12-13 17:35 | disposition home or self-care (01) ==
PROVIDERS: Admitting Provider Obstetrics & Gynecology; Visit Provider Obstetrics & Gynecology
DX: O26.893 Other specified pregnancy related conditions, third trimester (principal); M54.50 Low back pain, unspecified; O09.33 Supervision of pregnancy with insufficient antenatal care, third trimester; Z3A.34 34 weeks gestation of pregnancy
CPT/HCPCS: 59025; 59899; 84112

== ENCOUNTER 2024-12-19 14:24 | Observation (INO) | payer MEDICAID, SELFPAY ==
[2024-12-19] VITALS (29 sets, daily range): BP systolic 116–133; BP diastolic 59–88; PULSE 71–92; RESP 16–100; TEMP 36.8; O2SAT 98–100; BMI 73.8; BMI 33.4
--- NOTE | 2024-12-19 15:17 | XR_ITS ---
Examination: Complete OB ultrasound greater than 14 weeks Date and time of exam: December 19, 2024, 1601 hours INDICATIONS: Lower back and pelvic pain today Findings: Viable intrauterine single fetus with single amniotic sac Viable intrauterine gestation cephalic presentation spine maternal left. Cardiac motion 155 BPM. Placenta anterior grade 2. Umbilical cord insertion seen. Amniotic fluid index 6.3 cm spine maternal left Ovaries obscured by bowel gas. Composite estimated gestational age based on BPD, head circumference, abdominal circumference, femur length is 34 weeks 5 days, estimated weight 2512 g. Survey of intracranial anatomy, spinal anatomy, abdominal anatomy, four-chamber heart performed with no abnormalities identified. Impression: Viable intrauterine gestation cephalic presentation.
[2024-12-19 15:59] LABS: Collection Type, Urine Clean Catch
[2024-12-19 16:19] LABS: Basophils # (Auto) 0.0 Thou/mm3 (0.0-0.2); Basophils % (Auto) 0 % (0-2.5); Eosinophils # (Auto) 0.1 Thou/mm3 (0.0-0.5); Eosinophils % (Auto) 1 % (0-10); Hematocrit 26.2 % (36.0-46.0); Immature Granulocytes Auto 0.23 Thou/mm3 (0.00-0.00); Lymphocytes # (Auto) 1.9 Thou/mm3 (1.0-4.8); Lymphocytes % (Auto) 20 % (10-50); Mean Corpuscular HGB Conc 30.5 g/dl (31.0-37.0); Mean Corpuscular Hemoglobin 22.4 pg (25.0-35.0); Mean Corpuscular Volume 73 fL (80-100); Monocytes # (Auto) 0.7 Thou/mm3 (0.0-0.8); Monocytes % (Auto) 8 % (0-12); Neutrophils # (Auto) 6.2 Thou/mm3 (1.8-7.7); Neutrophils % (Auto) 68 % (37-80); Nucleated Red Blood Cell # 0.06 Thou/mm3 (0.00-0.00); Nucleated Red Blood Cell % 1 /100 WBC (0); Platelet Count 392 Thou/mm3 (140-440); RDW Standard Deviation 42.9 fL (36.4-46.3); Red Blood Count 3.57 Miln/mm3 (4.00-5.20); White Blood Count 9.2 Thou/mm3 (3.6-11.0)
[2024-12-19 16:46] LABS: Bacteria,Urine 1+; Bilirubin,Urine Negative (Negative); Blood,Urine Trace (Negative); Clarity,Urine Clear (Clear/Hazy); Color,Urine Lt-Yellow (Lt Yel-Yel); Glucose, Urine Negative (Negative); Ketones,Urine Negative (Negative); Leukocyte Esterase,Urine Positive (Negative); Nitrite,Urine Negative (Negative); PH,Urine 6.5 (5.0-7.0); Protein,Urine 1+ (Neg - Trace); RBC,Urine 26 /hpf (0-3); Specific Gravity,Urine 1.015 (1.001-1.035); Squamous Epithelial Cell,Urine 3 /hpf (0-5); Urobilinogen,Urine Negative mg/dL (0.0-1.0); WBC,Urine 14 /hpf (0-5)
[2024-12-19 16:50] LABS: Hepatitis B Surface Antigen Non Reactive (Non React); Rubella, IgG Antibody Reactive (Immune)
[2024-12-19 16:53] LABS: Syphilis Nonreactive (Nonreactive)
[2024-12-19 17:08] LABS: Amphetamine/Metham Scrn,Ur OB Negative (Negative); Benzoylecgonine Screen, Ur OB Negative (Negative); Opiate Screen,Urine OB Negative (Negative); THC Screen,Urine OB Negative (Negative)
[2024-12-19 17:39] LABS: Culture Indicated,Urine Yes
[2024-12-19 17:45] LABS: Hemoglobin 8.1 g/dL (12.0-16.0)
[2024-12-19 19:29] LABS: Glucose Estimated Average 120 mg/dL (80-131); Hemoglobin A1C 5.8 % Hgb (4.8-6.0)
[2024-12-19 19:38] LABS: HIV (1&2) Antibody Rapid Non-Reactive
== END 2024-12-19 18:00 | disposition home or self-care (01) ==
LOC: S4SX 14:26
PROVIDERS: Admitting Provider Obstetrics & Gynecology; Visit Provider Obstetrics & Gynecology
DX: O26.893 Other specified pregnancy related conditions, third trimester (principal); Z3A.34 34 weeks gestation of pregnancy; R10.2 Pelvic and perineal pain; M54.50 Low back pain, unspecified
CPT/HCPCS: 36415; 59025; 59899; 76805; 80307; 81001; 83036; 85025; 86703; 86762; 86780; 86900; 86901; 87086; 87340

== ENCOUNTER 2024-12-20 23:16 | Observation (INO) | payer MEDICAID, SELFPAY ==
[2024-12-20] VITALS (7 sets, daily range): BP systolic 134; BP diastolic 76; PULSE 89–95; RESP 17–99; TEMP 37; O2SAT 99–100; BMI 33.5
[2024-12-21] VITALS (8 sets, daily range): BP systolic 128; BP diastolic 61; PULSE 78–89; O2SAT 99–100
--- NOTE | 2024-12-21 | XR_ITS ---
Examination: Biophysical profile, ultrasound Date and time of exam: December 21, 2024, 0031 hrs. Indications: Decreased movement today, indicating amniotic fluid today Technique: Multiple transabdominal sonographic images of the pelvis abdomen obtained. Attention is directed to the breathing movement, gross body movement, amniotic fluid volume and tone. Findings: Amniotic fluid index 10.1 cm Total biophysical profile is 8 of 8. breathing movement is 2. Gross body movement is 2. tone is 2. Qualitative amniotic fluid volume is 2 Impression: Biophysical profile is 8 of 8.
[2024-12-21 00:20] LABS: Collection Type, Urine Clean Catch
[2024-12-21 00:25] LABS: ROM Kit Exp Date# 01/18/2028; ROM Kit Lot # 58104371; ROM Swab Mixed By: PC; Rupture of Fetal Membranes Negative (Negative); Swb Mxed in Solvent 1 min? Yes
[2024-12-21 00:27] LABS: Bilirubin,Urine Negative (Negative); Blood,Urine Negative (Negative); Clarity,Urine Clear (Clear/Hazy); Color,Urine Lt-Yellow (Lt Yel-Yel); Glucose, Urine Negative (Negative); Ketones,Urine Negative (Negative); Leukocyte Esterase,Urine Negative (Negative); Nitrite,Urine Negative (Negative); PH,Urine 6.5 (5.0-7.0); Protein,Urine Negative (Neg - Trace); RBC,Urine 6 /hpf (0-3); Specific Gravity,Urine 1.016 (1.001-1.035); Squamous Epithelial Cell,Urine 1 /hpf (0-5); Urobilinogen,Urine Negative mg/dL (0.0-1.0); WBC,Urine 4 /hpf (0-5)
--- NOTE | 2024-12-21 01:57 | PRELIM_ITS ---
Obstetric ultrasound (limited) with Doppler. December 21, 2024 0031 hours Clinical history: Headache, leaking Comparison: None available at the time of this report. Findings: There is a gravid uterus with a live fetus. cardiac activity is present at a heart rate of 147 beats per minute. Amniotic fluid is adequate (VIKRAM = 10.1 cm). No abnormalities by Doppler. Biophysical Profile: Breathing : 2 Tone : 2 Amniotic fluid : 2 Movement : 2 BPP Score : 8/8 Impression: Gravid uterus with a single live fetus. Normal biophysical profile as recorded by the neurology technologist. Report Electronically Signed By: Jayy Ring 12/21/2024 1:57:22 AM [EST]
== END 2024-12-21 01:19 | disposition home or self-care (01) ==
PROVIDERS: Admitting Provider Obstetrics & Gynecology; Visit Provider Obstetrics & Gynecology
DX: O26.893 Other specified pregnancy related conditions, third trimester (principal); Z3A.35 35 weeks gestation of pregnancy; R51.9 Headache, unspecified
CPT/HCPCS: 59025; 59899; 76819; 81001; 84112

== ENCOUNTER 2024-12-25 14:35 | Outpatient (AMB) | payer MEDICAID, SELFPAY ==
[2024-12-25 15:08] VITALS: BP 129/88; PULSE 92; RESP 18; TEMP 36.6; O2SAT 98; BMI 33.7
--- NOTE | 2024-12-25 15:08 | OBCLNT_ITS ---
Vital Signs 12/25/24 15:08 Height 1.52 m Height Method Stated Weight 78.471 kg Weight Measurement Method Standing Scale BMI 33.7 BP 129/88 H Blood Pressure Source Automatic Cuff Blood Pressure Location Left Upper Arm Position Sitting Respiration 18 Pulse 92 Pulse Source Monitor Temp 98 F Temp Source Oral Pulse Oximetry (%) 98 Oxygen Delivery Method Room Air Allergies/Home Meds Allergies & Medications Allergies No Known Allergies Allergy (Verified 12/25/24 15:12) Medication Reconciliation acetaminophen 325 mg tablet (Tylenol) 325 mg PO Q6H PRN lower back pain 12/19/24 [History Confirmed 12/25/24] ferrous sulfate 325 mg (65 mg iron) tablet 325 mg PO BID 90 days #180 tabs 12/25/24 [Rx] Intake Visit Data Collection New Patient or Established: Established Patient (seen at [facility] within 3 years) Reason for Visit:: CARE Seen by Clinical Staff ONLY (RN/MA): No Executive Administrative Asst Required: No Do You Feel Safe at Home: Yes Authorities Contacted: N/A PCP or OBGYN visit in last 3 months: No Hx Now: Yes Are you currently on any form of Control: No Last menstrual period: 04/20/24 Pain Present Currently: No Pain Scale Used: Flynn-Gregorio/Numerical Pain scale:: 0 Smoking Status Smoking Status: Current some day smoker Cessation Counseling Provided: NOAH was advised that quitting smoking is the single most important factor to protect the health of themselves and their family. Discussed the benefits of quitting smoking with patient. Encouraged patient to quit smoking and provided Cessation assistance materials and resources. Tobacco Use: Cigarette Years smoked: 15 Are you interested in Quitting?: Yes Would you like additional Smoking Cessation Counseling?: Yes Questionnaires Covid-19 Vaccine Questionnaire Has patient been vacinated for Covid-19 Have you been vacinated for Covid-19: No PHQ-9 PHQ-2 Over the last 2 weeks, how often have you been bothered by any of the following problems? 1. Little interest or pleasure in doing things: not at all 2. Feeling down, depressed, or hopeless: not at all Total score: 0 PHQ-9 3. Trouble falling or staying asleep, or sleeping too much: Not at all 4. Feeling tired or having little energy: Not at all 5. Poor appetite or overeating: Not at all 6. Feeling bad about yourself - or that you are a failure or have let yourself or your family down: Not at all 7. Trouble concentrating on things, such as reading the newspaper or watching television: Not at all 8. Moving or speaking so slowly that other people could have noticed? - Or the opposite - being so fidgety or restless that you have been moving around a lot more than usual: not at all 9. Thoughts that you would be better off or of hurting yourself in some way: Not at all Total score: 0 Source: Developed by Drs. Kai Bennett, Lani Mcelroy, Dionicio Teixeira and colleagues, with an educational jeb from [employer]. Depression screen completed yes Social History Living Situation History Lives With: Family Housing: House Tobacco History Smoking Status: Current some day smoker Second Hand Smoke Exposure: No Alcohol History Alcohol Intake: Former Alcohol Intake Frequency: A Few Times a Month Substance Use History Substance Use: METH AND THC USE Domestic Abuse History Do You Feel Safe at Home: Yes History of Present Illness HPI Narrative Jeanne Restrepo, , presents for routine visit at 36 weeks and 1 day gestation. No contractions, LOF, VB and reports good FM. Denies LINO, VC, and epigastric pain. - Jeanne Restrepo is a 30-kuuj-7-day woman () with a history of polysubstance abuse and previous stillbirth, presenting for follow-up after a triage visit. 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 Past Medical History: No Hx Neurological Disorders, No Hx Cardiac Disorders, Yes Hx Hypertension, No Hx Cancer, No Hx Blood Disorders, Yes Hx Anemia, No Hx Gastrointestinal Disorders, No Hx Renal Disease, No Hx Deep Vein Thrombosis, No Hx Diabetes Mellitus Type 1, No Hx Diabetes Mellitus Type 2 and No Psychiatric Problems OB Initial Visit OB Flowsheet OB Flowsheet Initial Weight: Not Recorded Date -?-?-?-?-?-?-?-?-?-?-?-?- EGA Weight BP Alb Glu CTX Pres Fundal ht FHR Mov Dilation Station Effacement Hx Notes Visit Note 12/25/24 -?-?-?-?-?-?-?-?-?-?-?-?- 36w 1d 78.471 kg 129/88 155 - Jeanne Restrepo is a 49-vqjz-4-day woman () with a history of polysubstance abuse and previous stillbirth, presenting for follow-up after a triage visit. - Recent triage visit (date unspecified) : - Complaints: headache, clammy feet, f eeling moist - Concern about rupture of membranes - Reported decreased movements - Previous triage visit on 12/19/2024: - VIKRAM of 6.3 - Estimated weight of 2512 grams - Composite gestational age of 34 week s and 5 days - Hospital visit 2 days ago: - Diagnosed with anemia, no treatment given - Patient reports feeling tired - Current status: - Denies leaking or other issues - Reports baby is active - No complaints of decreased mov ement - Substance use history: - Tested positive for methamphetamine at initial presen tation - Complete full anemia panel today - Start iron supplementation - Consider IV iron if levels are very lo w - Conduct lab work at [facility] on [address] t omorrow morning (closes at 3 PM) - Follow up in one week Menstrual History Menstrual reliability: definite Flow: normal Menstrual regularity: irregular Monthly: No Age at menarche: 12 On control pills at conception: No Associated symptoms (LMP): Denies amenorrhea, nausea, vomiting, fatigue, breast tenderness, urinary frequency, irritability, bloating or other OB History : 6 Para: 4 Hx # Pregnancies: 1 Hx Total # of Abortions (Spontaneous & Elective): 1 # of Living Children: 4 Delivery History 1st : Child's name: YISSEL date: 06/30/08 sex: female Gestational age at delivery (weeks): 40 Delivery type: vaginal Delivery complications: NONE History of depression before or after : No 2nd : Child's name: ROSANA date: 12/23/12 sex: female Gestational age at delivery (weeks): 40 Delivery type: vaginal Delivery complications: NONE History of depression before or after : No 3rd : Child's name: AMARILYS date: 02/03/23 sex: male Gestational age at delivery (weeks): 40 Delivery type: vaginal Delivery complications: NONE History of depression before or after : No 4th : Child's name: DILLON date: 02/03/23 sex: male Gestational age at delivery (weeks): 36 Delivery type: vaginal Delivery complications: NONE History of depression before or after : No Infection History & Risk Evaluation History of STDs: none Genetic Screening & History Genetic Screening/Teratology Counseling - Includes patient, baby's father, or anyone in either family with: 1. Patient's age 35 years or older as of estimated date of delivery: Yes 2. Thalassemia (Uzbek, Chadian, Mediterranean, or Background); MCV less than 80: No 3. Neural Tube Defect (Meningomyelocele, Spina Bifida, or Anencephaly): No 4. Congenital Heart Defect: No 5. Down Syndrome: No 6. Hector-Sachs (Ashkenazi Taoist, Cajun, Japanese Tongan): No 7. Colin Disease (Ashkenazi Taoist): No 8. Familial Dysautonomia (Ashkenazi Taoist): No 9. Sickle Cell Disease or Trait (): No 10. Hemophilia or other blood disorders: No 11. Muscular Dystrophy: No 12. Cystic Fibrosis: No 13. [place]'s Chorea: No 14. Mental Retardation/Autism: No 15. Other inherited genetic or chromosomal disorder: No 16. Maternal Metabolic Disorder (EG,TYPE 1 Diabetes, PKU): No 17. Patient or baby's father had a child with defects not listed above: No 18. Recurrent loss or a stillbirth: No 19. Medications (including supplements, vitamins, herbs or otc drugs)/illicit/recreational drugs/alcohol since last menstrual period: No 20. Any other: No Infection History 1. Live with someone with TB or exposed to TB: No 2. Rash or viral illness since last menstrual period: No 3. Hepatitis B,C: No Other (see comments) Source: [employer] Review of Systems Constitutional Constitutional: Denies fatigue Gastrointestinal Gastrointestinal: Denies bloating, Denies nausea and Denies vomiting Genitourinary Genitourinary: Denies amenorrhea and Denies urinary frequency Psychiatric Psychiatric: Denies irritability Endocrine Endocrine: Denies fatigue Office Procedures OB Clinic LOC & Office Proc's Nursing/Assessment Patient Status: Established Patient OB Clinic Nursing Assessment: Medication Reconciliation, Update PMH in EMR and Vital Signs OB Clinic Coordination of Care: Complex Care and Chronic Disease 1-5, Consent,records obtained, informed consent, Education Simp Pt/Fam, 1 Ins Authorization, Lab and Imaging orders, Results/Orders obtained and Staff clarify orders Special Needs: Heart tones Established Patient Charge Established Patient Point Assignment: 150 Established Patient Point Charge: EP Level 4 (120-155) Assessment & Plan Diagnosis / Problem List (1) Supervision of high risk in third trimester: Status: Acute (2) No care in current in second trimester: Status: Acute (3) Polysubstance abuse: Status: Acute (4) Anemia affecting : Status: Acute Plan Problem List - , 36 weeks and 1 day - Anemia - History of polysubstance abuse - History of stillbirth Assessment at 36 weeks 1 day gestation by LMP (MARYELLEN 01/21/2025) presenting for follow-up after triage visit. History of polysubstance abuse with positive methamphetamine screen earlier in . Recent triage visits for headache, clammy feet, and decreased movement, with VIKRAM 10.1 and category one strip on most recent visit. Prior triage visit on 12/19/2024 showed VIKRAM 6.3 and EFW 2512g at 34w5d composite GA. History of stillbirth at 21 weeks. Current BP 128/61. Reported anemia from recent hospital visit, with associated fatigue. heart rate 155 bpm. No current complaints of leaking or decreased movement. Plan - Complete full anemia panel today - Start iron supplementation - Consider IV iron if levels are very low - [facility] [address] [facility] (closes at 3 PM) - Follow up in one week 1. Progress Reviewed gestational age, growth, and heart rate. Planned frequent visits (every 2 weeks until 36 weeks, then weekly). 2. Instructed patient to monitor movements and report decreases immediately. 3. Testing Counseled on routine third-trimester labs per guidelines. Discussed potential need for ultrasound or monitoring based on risk factors. 4. Preeclampsia Precaution Educated on preeclampsia signs: severe headache, vision changes, right upper quadrant pain, sudden swelling. Advised urgent reporting of symptoms and discussed blood pressure monitoring if high risk. 5. Labor Precautions Reviewed labor signs: regular contractions, pelvic pressure, back pain, bleeding, or fluid leakage. Instructed to seek immediate care for these symptoms. 6. Lifestyle and Delivery Preparation Reinforced vitamins, nutrition, and safe activity. Discussed plan, pain management, and . Advised on labor preparation (e.g., hospital bag) and expectations. 7. Psychosocial Support Assessed emotional well-being and offered resources for mental health or parenting support.
== END 2024-12-25 15:23 | disposition home or self-care (01) ==
LOC: HODSOBC 14:35
PROVIDERS: Supervising Provider Obstetrics & Gynecology; Visit Provider Obstetrics & Gynecology
DX: O09.33 Supervision of pregnancy with insufficient antenatal care, third trimester (principal); O09.523 Supervision of elderly multigravida, third trimester; O09.893 Supervision of other high risk pregnancies, third trimester; O99.013 Anemia complicating pregnancy, third trimester; O99.323 Drug use complicating pregnancy, third trimester; F15.10 Other stimulant abuse, uncomplicated; O09.293 Supervision of pregnancy with other poor reproductive or obstetric history, third trimester; Z3A.36 36 weeks gestation of pregnancy; O99.333 Smoking (tobacco) complicating pregnancy, third trimester; F17.210 Nicotine dependence, cigarettes, uncomplicated; Z71.6 Tobacco abuse counseling
CPT/HCPCS: 99214; G0463

== ENCOUNTER 2025-01-05 12:28 | Observation (INO) | payer MEDICAID, SELFPAY ==
[2025-01-05] VITALS (16 sets, daily range): BP systolic 136; BP diastolic 85; PULSE 69–93; RESP 20–100; TEMP 36.8; O2SAT 98–100; BMI 33.4
[2025-01-05 13:15] LABS: ROM Kit Exp Date# 01-08-28; ROM Kit Lot # 58104371; ROM Swab Mixed By: LOPEC2; Swb Mxed in Solvent 1 min? Yes
[2025-01-05 13:18] LABS: Rupture of Fetal Membranes Negative (Negative)
--- NOTE | 2025-01-05 13:24 | XR_ITS ---
Examination: Biophysical profile, ultrasound Date and time of exam: January 05, 2025, 1353 hrs. Indications: Leaking vaginal fluid beginning 2 weeks ago Technique: Multiple transabdominal sonographic images of the pelvis abdomen obtained. Attention is directed to the breathing movement, gross body movement, amniotic fluid volume and tone. Findings: Amniotic fluid index 11.4 cm Total biophysical profile is 8 of 8. breathing movement is 2. Gross body movement is 2. tone is 2. Qualitative amniotic fluid volume is 2 Impression: Biophysical profile is 8 of 8.
[2025-01-05 17:50] LABS: BVAG Candida Negative (Negative); Bacterial Vaginosis Markers Negative (Negative); Candida glabrata Positive (Negative); Candida krusei PCR Negative (Negative); Trichomonas Negative (Negative)
--- NOTE | 2025-01-05 20:46 | ESPR_ITS ---
Documentation for date of: 01/05/25 OB Labor Progress Note Pelvic Exam Dilation (cm): CLOSED Effacement (%): THICK Amniotic membrane status: Intact Contractions Monitor mode: External Contraction frequency: IRRIT/OCC Status status: Category l Assessment and Plan Comments: Triage Note Marielos is a 34yo with SIUP at 37&5wk presenting to L&D for leakage of fluid and decreased movement x2 days. No regular ctx, no vaginal bleeding. She was seen on 12/08 and 12/13 for similar complaints. Treated for Candidiasis after 12/13 triage visit. No complaints of abnormal vaginal discharge, irritation or odor. complicated by: Insufficient care UDS +methamphetamines and THC on 10/14/24 Admission for pyelonephritis at 25wk AMA (age 34) Anemia ROS negative other than what was described above. Vitals wnl, afebrile General: well developed, well nourished, no acute distress, conversant Cardiac: normal heart rate Lungs: breathing without distress Abdomen: soft, gravid, non-tender, no rebound or guarding Extremities: no edema of BLE Vaginitis swab obtained. SCE: ft/thick/high NST: Reactive, +accels, no decels, mod tom [place]: no regular ctx pattern Labs: Amnisure: negative Radiology: Examination: Biophysical profile, ultrasound Date and time of exam: January 05, 2025, 1353 hrs. Indications: Leaking vaginal fluid beginning 2 weeks ago Technique: Multiple transabdominal sonographic images of the pelvis abdomen obtained. Attention is directed to the breathing movement, gross body movement, amniotic fluid volume and tone. Findings: Amniotic fluid index 11.4 cm Total biophysical profile is 8 of 8. breathing movement is 2. Gross body movement is 2. tone is 2. Qualitative amniotic fluid volume is 2 Impression: Biophysical profile is 8 of 8. Assessment: Marielos is a 34yo with SIUP at 37&5wk with no evidence of ROM or labor. AmniSure negative. VIKRAM 11.4cm. BPP 8/8. Vitals wnl, benign exam. Reassuring status. Plan: -Vaginitis swab pending, patient to follow up on results at office visit this coming week -Return precautions discussed -Safe for discharge home at this time Ronda Alonso MD
== END 2025-01-05 14:25 | disposition home or self-care (01) ==
PROVIDERS: Admitting Provider Obstetrics & Gynecology; PCP Family Medicine; Visit Provider Obstetrics & Gynecology
DX: O36.8130 Decreased fetal movements, third trimester, not applicable or unspecified (principal); Z3A.37 37 weeks gestation of pregnancy
CPT/HCPCS: 59025; 59899; 76819; 81514; 84112

== ENCOUNTER 2025-01-10 18:49 | Observation (INO) | payer MEDICAID, SELFPAY ==
[2025-01-10] VITALS (9 sets, daily range): BP systolic 135–147; BP diastolic 83–95; PULSE 65–88; RESP 18–98; TEMP 32.2; BMI 34.2
[2025-01-10 19:30] LABS: ROM Kit Exp Date# 1/18/28; ROM Kit Lot # 58104371; ROM Swab Mixed By: GONZY; Swb Mxed in Solvent 1 min? Yes
[2025-01-10 19:39] LABS: Rupture of Fetal Membranes Negative (Negative)
== END 2025-01-10 20:12 | disposition home or self-care (01) ==
PROVIDERS: Admitting Provider Obstetrics & Gynecology; Visit Provider Obstetrics & Gynecology
DX: Z34.83 Encounter for supervision of other normal pregnancy, third trimester (principal); Z3A.38 38 weeks gestation of pregnancy
CPT/HCPCS: 59025; 59899; 84112

== ENCOUNTER 2025-01-11 08:22 | Observation (INO) | payer MEDICAID, SELFPAY ==
[2025-01-11] VITALS (25 sets, daily range): BP systolic 131–137; BP diastolic 6–90; PULSE 63–75; RESP 20–100; TEMP 36.9; O2SAT 98–100; BMI 33.8
[2025-01-11 09:27] LABS: Basophils # (Auto) 0.1 Thou/mm3 (0.0-0.2); Basophils % (Auto) 1 % (0-2.5); Eosinophils # (Auto) 0.1 Thou/mm3 (0.0-0.5); Eosinophils % (Auto) 1 % (0-10); Hematocrit 26.7 % (36.0-46.0); Hemoglobin 8.2 g/dL (12.0-16.0); Immature Granulocytes Auto 0.09 Thou/mm3 (0.00-0.00); Lymphocytes # (Auto) 1.7 Thou/mm3 (1.0-4.8); Lymphocytes % (Auto) 23 % (10-50); Mean Corpuscular HGB Conc 30.7 g/dl (31.0-37.0); Mean Corpuscular Hemoglobin 22.3 pg (25.0-35.0); Mean Corpuscular Volume 73 fL (80-100); Monocytes # (Auto) 0.6 Thou/mm3 (0.0-0.8); Monocytes % (Auto) 9 % (0-12); Neutrophils # (Auto) 4.8 Thou/mm3 (1.8-7.7); Neutrophils % (Auto) 65 % (37-80); Nucleated Red Blood Cell # 0.02 Thou/mm3 (0.00-0.00); Nucleated Red Blood Cell % 0 /100 WBC (0); Platelet Count 282 Thou/mm3 (140-440); RDW Standard Deviation 46.5 fL (36.4-46.3); Red Blood Count 3.67 Miln/mm3 (4.00-5.20); White Blood Count 7.4 Thou/mm3 (3.6-11.0)
[2025-01-11 09:29] LABS: Collection Type, Urine Clean Catch
[2025-01-11 09:49] LABS: Bacteria,Urine Rare; Bilirubin,Urine Negative (Negative); Blood,Urine Negative (Negative); Clarity,Urine Clear (Clear/Hazy); Color,Urine Lt-Yellow (Lt Yel-Yel); Glucose, Urine Negative (Negative); Ketones,Urine Negative (Negative); Leukocyte Esterase,Urine Positive (Negative); Nitrite,Urine Negative (Negative); PH,Urine 6.5 (5.0-7.0); Protein,Urine Negative (Neg - Trace); RBC,Urine 6 /hpf (0-3); Specific Gravity,Urine 1.013 (1.001-1.035); Squamous Epithelial Cell,Urine 1 /hpf (0-5); Urobilinogen,Urine Negative mg/dL (0.0-1.0); WBC,Urine 10 /hpf (0-5)
[2025-01-11 09:56] LABS: Creatinine,Random Urine 100 mg/dL (30-125); Protein Total, Random Urine 37 mg/dL (1-14)
[2025-01-11 10:02] LABS: Alanine Aminotransferase < 7 U/L (10-49); Albumin, Serum 3.5 gm/dL (3.5-5.0); Albumin/Globulin Ratio 1.6 (1.2-2.2); Alkaline Phosphatase 160 U/L (46-116); Anion Gap 9 (7-16); Aspartate Amino Transferase 12 U/L (0-34); BUN/Creatinine Ratio 9 Ratio (12-20); Bilirubin,Total 0.7 mg/dL (0.3-1.2); Blood Urea Nitrogen 6 mg/dL (9-23); Calcium 8.6 mg/dL (8.3-10.6); Calcium (Corrected) 9.0 mg/dL (8.5-10.1); Carbon Dioxide 19.3 mMol/L (20.0-31.0); Chloride 110 mMol/L (98-107); Creatinine (Component) 0.7 mg/dL (0.6-1.3); Estimated Creatinine Clearance 104.0 mL/min (>60); Globulin 2.2 gm/dL (2.3-3.5); Glucose 82 mg/dL (74-106); LDH (Lactate Dehydrogenase) 177 U/L (120-246); Osmolality,Calculated 272 (275-295); Potassium 3.4 mMol/L (3.4-5.1); Sodium 138 mMol/L (136-145); Total Protein 5.7 gm/dL (5.7-8.2); Uric Acid 5.8 mg/dL (3.1-7.8); eGFR > 60 See Note
[2025-01-11 10:07] LABS: Fibrinogen 512 mg/dL (175-375); INR 0.9 (0.9-1.3); Partial Thromboplastin Time 24.2 Seconds (22.0-36.0); Prothrombin Time 9.8 Seconds (9.0-12.2)
--- NOTE | 2025-01-11 12:00 | XR_ITS ---
Examination: Biophysical profile, ultrasound Date and time of exam: January 11, 2025, 1213 hours INDICATIONS: decelerations and pelvic contractions today, labor evaluation Technique: Multiple transabdominal sonographic images of the pelvis abdomen obtained. Attention is directed to the breathing movement, gross body movement, amniotic fluid volume and tone. Findings: Amniotic fluid index 5.6 cm Total biophysical profile is 8 of 8. breathing movement is 2. Gross body movement is 2. tone is 2. Qualitative amniotic fluid volume is 2 Impression: Biophysical profile is 8 of 8.
== END 2025-01-11 12:45 | disposition home or self-care (01) ==
PROVIDERS: Admitting Provider Obstetrics & Gynecology; Visit Provider Obstetrics & Gynecology
DX: O47.1 False labor at or after 37 completed weeks of gestation (principal); Z3A.38 38 weeks gestation of pregnancy
CPT/HCPCS: 36415; 59025; 59899; 76819; 80053; 81001; 82570; 83615; 84156; 84550; 85025; 85384; 85610; 85730; 87086

== ENCOUNTER 2025-01-15 01:46 | Inpatient (IN) | payer MEDICAID, SELFPAY ==
[2025-01-15] VITALS (127 sets, daily range): BP systolic 104–178; BP diastolic 60–102; PULSE 59–86; RESP 16–20; TEMP 36.7–36.9; O2SAT 93–100; BMI 34.3
[2025-01-15 03:12] LABS: Basophils # (Auto) 0.1 Thou/mm3 (0.0-0.2); Basophils % (Auto) 1 % (0-2.5); Eosinophils # (Auto) 0.1 Thou/mm3 (0.0-0.5); Eosinophils % (Auto) 1 % (0-10); Hematocrit 26.3 % (36.0-46.0); Immature Granulocytes Auto 0.13 Thou/mm3 (0.00-0.00); Lymphocytes # (Auto) 2.3 Thou/mm3 (1.0-4.8); Lymphocytes % (Auto) 27 % (10-50); Mean Corpuscular HGB Conc 30.4 g/dl (31.0-37.0); Mean Corpuscular Hemoglobin 22.0 pg (25.0-35.0); Mean Corpuscular Volume 72 fL (80-100); Monocytes # (Auto) 0.5 Thou/mm3 (0.0-0.8); Monocytes % (Auto) 6 % (0-12); Neutrophils # (Auto) 5.4 Thou/mm3 (1.8-7.7); Neutrophils % (Auto) 63 % (37-80); Nucleated Red Blood Cell # 0.04 Thou/mm3 (0.00-0.00); Nucleated Red Blood Cell % 1 /100 WBC (0); Platelet Count 322 Thou/mm3 (140-440); RDW Standard Deviation 45.0 fL (36.4-46.3); Red Blood Count 3.64 Miln/mm3 (4.00-5.20); White Blood Count 8.5 Thou/mm3 (3.6-11.0)
--- NOTE | 2025-01-15 03:16 | XR_ITS ---
Examination: Complete OB ultrasound greater than 14 weeks Date and time of exam: January 15, 2025, 0448 hours INDICATIONS: Preop labor induction Findings: Viable intrauterine single fetus with single amniotic sac presentation cephalic Cardiac motion 126 bpm Placenta anterior grade 3 Amniotic fluid index 6.9 cm Ovaries obscured by bowel gas. Composite estimated gestational age based on BPD, head circumference, abdominal circumference, femur length is 38 weeks 2 days, estimated weight 3499 g. Survey of intracranial anatomy, spinal anatomy, abdominal anatomy, four-chamber heart performed with no abnormalities identified. Impression: Viable intrauterine gestation in cephalic presentation.
[2025-01-15 03:18] LABS: Hemoglobin 8.0 g/dL (12.0-16.0)
[2025-01-15 03:19] LABS: Amphetamine/Metham Scrn,Ur OB Negative (Negative); Benzoylecgonine Screen, Ur OB Negative (Negative); Opiate Screen,Urine OB Negative (Negative); THC Screen,Urine OB Negative (Negative)
[2025-01-15 03:41] LABS: Syphilis Nonreactive (Nonreactive)
--- NOTE | 2025-01-15 05:44 | PRELIM_ITS ---
Obstetric ultrasound with Doppler and wave Doppler spectral analysis. January 15, 2025 0448 hours Clinical history: Presentation, gestational age and EFW Comparison: Ultrasound of December 21, 2024. Findings: There is a gravid uterus with a live fetus in cephalic presentation of mean gestational age 38 weeks and 2 days (by biometry). cardiac activity is present at a heart rate of 126 beats per minute. The placenta is anterior in location. There is no evidence of placenta previa or retroplacental hemorrhage. Amniotic fluid is adequate (VIKRAM = 6.9 cm). Estimated weight is 3499 grams+/- 518 grams. No abnormalities by Doppler. Impression: Gravid uterus with a single live fetus in cephalic presentation of mean gestational age 38 weeks 2 days. Report Electronically Signed By: Jayy Ring 01/15/2025 5:43:49 AM [EST]
--- NOTE | 2025-01-15 07:17 | ESHP_ITS ---
Documentation for date of: 01/15/25 OB Labor/Induct. HPI History of Present Illness Chief complaint: Scheduled induction of labor : 6 Term pregnancies: 4 pregnancies: 1 Living children: 4 History of Abortions: Spontaneous and Elective: 0 History of sections: No History of : No Date of last menstrual period: 04/16/24 MARYELLEN: 01/21/25 Gestational Age (weeks): 39 Gestational Age (days): 1 Gestational age based on last menstrual period: 39 Indication for induction: other (History of stillbirth, scant care, history of polysubstance abuse this ) History of present illness: The patient is a 34-year-old -0-1-4 history of stillbirth, with scant care this . She was seen first at 25 weeks through the ER I admitted her for pyelonephritis. At that time her UDS was positive for meth and marijuana. Patient did have a visit or [address] Christensen at the [facility]. She presents around 3 in the morning for a scheduled induction of labor. She was 3 cm dilated on presentation. Unknown group B strep. Plan will be for Cytotec induction of labor. On admission her labs are normal. Patient is anemic with a hemoglobin of 8.0. All PIH labs are normal with the exception of a UPCR ratio of 0.37 corresponding to 450 mg of protein in a 24-hour urine. Patient started on ampicillin for unknown strep. Drug screen is negative this admission. History of Present Dating criteria: based on 2nd trimester US only Adequate Care: No Ultrasounds: normal mid trimester US Medical complications: other (Scant care. History of polysubstance abuse.) Labs Maternal Blood Type: O Pos Labs: Positive: Rubella Titre, Negative: RPR, Hepatitis B, HIV, Chlamydia and Gonorrhea and Unknown: Herpes Type 1, Herpes Type 2, Group Beta Strep and Covid-19 Past Medical History Surgical History SURGICAL: Negative Section Meds Home Medications and Allergies Allergies Allergy/AdvReac Type Severity Reaction Status Date / Time No Known Allergies Allergy Verified 01/15/25 02:20 OB Exam Physical Exam Vital signs: Pulse BP 69 132/88 H 01/15/25 07:06 01/15/25 07:06 Detailed Labor and Delivery Exam Effacement (%): 50 station: -2 Consistency: medium Presentation: Vertex Membranes: intact monitor accelerations: 15x15 monitor decelerations: None intermodal dispatcher variability: Moderate (11-25) Contraction frequency (min): Irregular Tachysystole: No Contraction intensity: Mild OB Results Labs 01/15/25 02:30 Labs: Short CBC 01/15/25 Range/Units 02:30 WBC 8.5 (3.6-11.0) Thou/mm3 Hgb 8.0 L (12.0-16.0) g/dL Hct 26.3 L (36.0-46.0) % Plt Count 322 D (140-440) Thou/mm3 OB Assessment & Plan Additional Plan Induction method: per misoprostol protocol Plan: induction, anticipate NVD and GBS prophylaxis tx
[2025-01-15] MEDS: RINGERS LACTATED 1000 ML 1,000 ML 100 ML IV ×3 (08:00→19:09)
[2025-01-15] MEDS: Ampicillin Inj 2,000 MG in SODIUM CHLORIDE 0.9% (POP) 100 ML 200 MG IV (16:25)
[2025-01-15] MEDS: Ampicillin Inj 1,000 MG in SODIUM CHLORIDE 0.9% (Popper) 50 ML 50 MG IV (20:14)
[2025-01-15] MEDS: MINERAL OIL 30 ML UDC TOP (20:35)
[2025-01-15] MEDS: TRANEXAMIC ACID 1,000 MG IVPB 1,000 MG/100 ML BAG 200 MG IV (20:45)
[2025-01-15] MEDS: OXYTOCIN in NS 20 units 20 UNIT/1,000 ML BAG 125 UNIT IV (21:06)
[2025-01-15] MEDS: IBUPROFEN TAB 400 MG TABLET 800 MG PO (21:08)
[2025-01-15] MEDS: BENZO/LANO/ALOE (Dermoplast) 60 GM CAN 1 SPRAY TOP (21:08)
--- NOTE | 2025-01-15 21:08 | OBDSUM_ITS ---
Data ([place]ores) Data Hx Section: No : 6 Term: 4 : 1 Livin Abortions: Spontaneous & Theraputic: 0 Delivery Data (Flores) Labor Data Initiation of labor: Induction Induction/Augmentation Agent: Cytotec-PO ROM date: 01/15/25 ROM time: 19:58 Amniotic membrane rupture type: Spontaneous Amniotic fluid description: Clear Delivery Data Onset of labor date: 01/15/25 Onset of labor time: 18:15 Complete dilation date: 01/15/25 Complete dilation time: 20:31 delivery date: 01/15/25 delivery time: 20:38 Placenta delivery date: 01/15/25 Placenta delivery time: 20:41 Stage 1 total time: Labor - Stage 1 Duration 2 hours and 16 minutes Delivered by: Delivery nurse: vanesa Soliz nurse: Debbie RN, Luiza RN President And Chief Operating Officer at delivery: No Support person(s) at delivery: FOB at bedside Delivery Method Delivery method: Normal Vaginal Delivery Presentation: Vertex Anesthesia Type Anesthesia Type: Epidural Placenta Placenta delivery description: Manual Removal Cord blood sent to lab: Yes cord blood collection: Cord Blood Type Episiotomy Episiotomy description: None Umbilical Cord cord description: 3 Vessels Data (Flores) Data order: 1 [place]'s gender: Female Identification band number: [id number] 1 minute: 8 5 minutes: 9
[2025-01-15] MEDS: ONDANSETRON INJ 2 MG/ML INJ 2 ML 4 MG IVP (21:52)
[2025-01-15] MEDS: ceFAZolin/D5W 2 GM IV 2 GM/100 ML BAG IV (21:53)
[2025-01-15] MEDS: HYDROmorphone INJ 2 MG/ML VIAL 1 MG IVP (21:53)
[2025-01-15 22:08] LABS: Basophils # (Auto) 0.1 Thou/mm3 (0.0-0.2); Basophils % (Auto) 1 % (0-2.5); Eosinophils # (Auto) 0.1 Thou/mm3 (0.0-0.5); Eosinophils % (Auto) 0 % (0-10); Hematocrit 27.2 % (36.0-46.0); Immature Granulocytes Auto 0.18 Thou/mm3 (0.00-0.00); Lymphocytes # (Auto) 2.1 Thou/mm3 (1.0-4.8); Lymphocytes % (Auto) 14 % (10-50); Mean Corpuscular HGB Conc 30.1 g/dl (31.0-37.0); Mean Corpuscular Hemoglobin 22.0 pg (25.0-35.0); Mean Corpuscular Volume 73 fL (80-100); Monocytes # (Auto) 0.8 Thou/mm3 (0.0-0.8); Monocytes % (Auto) 5 % (0-12); Neutrophils # (Auto) 11.8 Thou/mm3 (1.8-7.7); Neutrophils % (Auto) 79 % (37-80); Nucleated Red Blood Cell # 0.06 Thou/mm3 (0.00-0.00); Nucleated Red Blood Cell % 0 /100 WBC (0); Platelet Count 294 Thou/mm3 (140-440); RDW Standard Deviation 45.9 fL (36.4-46.3); Red Blood Count 3.73 Miln/mm3 (4.00-5.20); White Blood Count 14.9 Thou/mm3 (3.6-11.0)
[2025-01-15 22:09] LABS: Hemoglobin 8.2 g/dL (12.0-16.0)
--- NOTE | 2025-01-15 23:16 | PC.NURSE ---
2100 Bakri and pederson catheter placed by Dr. Christensen, to notify MD if more than 500 cc in bag 2300 Report handoff given to RN Gamaliel, notified RN of 50 cc of blood in Bakri bag and to notify Dr. Christensen if more than 500 cc are in bag.
[2025-01-16] VITALS (9 sets, daily range): BP systolic 111–146; BP diastolic 67–95; PULSE 57–66; RESP 16–22; TEMP 36.4–37; O2SAT 98–100
--- NOTE | 2025-01-16 | PC.NURSE ---
Pt called in stating her concern about the blood from the bag of her Bakri. Checked the pt in the room and pt has some drops of blood on the floor and patient stated that she stood up and trying to reach her baby. Educate pt about her Bakri balloon and pederson catheter. Remind pt to use call light button.
[2025-01-16] MEDS: HYDROcodone/APAP 5/325 TABLET 1 TAB PO (00:38)
--- NOTE | 2025-01-16 02:00 | PC.NURSE ---
Pt called in stating that she felt a gush of blood from her Bakri. Checked the pt. Some drops of blood on the floor and on her sheet. Pt stated that she's trying to get her baby so she can feed her. Pt complaining of pain inside her vagina and started crying. Notify MD Christensen of pt's concern about her pain and bleeding. ordered TXA times 1.
[2025-01-16] MEDS: TRANEXAMIC ACID 1,000 MG IVPB 1,000 MG/100 ML BAG 200 MG IV (02:13)
[2025-01-16] MEDS: HYDROmorphone INJ 2 MG/ML VIAL 1 MG IVP ×2 (05:05→11:32)
[2025-01-16] MEDS: ceFAZolin/D5W 2 GM IV 2 GM/100 ML BAG IV ×3 (05:29→22:12)
[2025-01-16 05:34] LABS: Basophils # (Auto) 0.1 Thou/mm3 (0.0-0.2); Basophils % (Auto) 0 % (0-2.5); Eosinophils # (Auto) 0.1 Thou/mm3 (0.0-0.5); Eosinophils % (Auto) 0 % (0-10); Hematocrit 25.7 % (36.0-46.0); Immature Granulocytes Auto 0.14 Thou/mm3 (0.00-0.00); Lymphocytes # (Auto) 2.4 Thou/mm3 (1.0-4.8); Lymphocytes % (Auto) 17 % (10-50); Mean Corpuscular HGB Conc 30.7 g/dl (31.0-37.0); Mean Corpuscular Hemoglobin 22.6 pg (25.0-35.0); Mean Corpuscular Volume 74 fL (80-100); Monocytes # (Auto) 0.8 Thou/mm3 (0.0-0.8); Monocytes % (Auto) 5 % (0-12); Neutrophils # (Auto) 10.9 Thou/mm3 (1.8-7.7); Neutrophils % (Auto) 76 % (37-80); Nucleated Red Blood Cell # 0.00 Thou/mm3 (0.00-0.00); Nucleated Red Blood Cell % 0 /100 WBC (0); Platelet Count 283 Thou/mm3 (140-440); RDW Standard Deviation 46.6 fL (36.4-46.3); Red Blood Count 3.49 Miln/mm3 (4.00-5.20); White Blood Count 14.4 Thou/mm3 (3.6-11.0)
[2025-01-16 05:52] LABS: Hemoglobin 7.9 g/dL (12.0-16.0)
[2025-01-16] MEDS: DOCUSATE SOD 100 MG CAPSULE PO (09:41)
[2025-01-16] MEDS: IBUPROFEN TAB 400 MG TABLET 800 MG PO ×2 (10:33→19:47)
--- NOTE | 2025-01-16 13:20 | ESPR_ITS ---
Subjective Subjective Interval history: The patient is a 34-year-old -0-1-5 history of vaginal delivery last evening around 8:[address] Christensen She had a lot of brisk bleeding after and a Bakri balloon was placed. Patient was given 1 unit of blood today. She is reporting back pain and cramping and would like her back removal removed. She is also had a Garvin catheter placed. Her bleeding has been scant. Predelivery hemoglobin is 8 postdelivery hemoglobin 7.9. She had Dilaudid about an hour and a half ago for pain and ibuprofen 800 mg about 2-1/2 hours ago for pain. She is not out of bed yet secondary to the back reand to the Garvin catheter still being in place. Exam Vital Signs Temp Pulse Resp BP Pulse Ox O2 Del Method 97.6 F 61 20 141/95 H 100 Room Air 01/16/25 10:56 01/16/25 10:56 01/16/25 10:56 01/16/25 10:56 01/16/25 10:56 01/16/25 07:15 Narrative Exam Patient is alert and oriented x 3 reporting some back pain and cramping pain. Patient states she is tired and would like to rest. Constitutional Constitutional: no acute distress Comments: Fundus is firm at umbilicus perineum is well-healed with no stitches visible. No swelling. Back Hoang is removed in its entirety and shown to the patient. Catheter was also removed. Extremities show no significant edema or erythema Objective Labs 01/16/25 04:50 Labs: Laboratory Results - last 24 hr 01/15/25 01/15/25 01/16/25 02:30 21:53 04:50 WBC 14.9 H D 14.4 H RBC 3.73 L 3.49 L Hgb 8.2 L 7.9 L Hct 27.2 L 25.7 L MCV 73 L 74 L MCH 22.0 L 22.6 L MCHC 30.1 L 30.7 L RDW Std Deviation 45.9 46.6 H Plt Count 294 283 Neut % (Auto) 79 76 Lymph % (Auto) 14 17 [place] % (Auto) 5 5 Eos % (Auto) 0 0 Baso % (Auto) 1 0 Neut # (Auto) 11.8 H 10.9 H Lymph # (Auto) 2.1 2.4 [place] # (Auto) 0.8 0.8 Eos # (Auto) 0.1 0.1 Baso # (Auto) 0.1 0.1 Immature Gran # (Auto) 0.18 H 0.14 H Absolute Nucleated RBC 0.06 H 0.00 Immature Gran % 1 H 1 H Nucleated RBC % 0 0 Blood Type O Positive Antibody Screen NEGATIVE Crossmatch See Detail Blood Bank Wristband ID Yes Assessment & Plan Problem List (1) Anemia affecting : Problem details: Patient came in with a hemoglobin 8 hemoglobin this morning 7.9 but she did have a hemorrhage she received 1 unit of packed red blood cells. Recheck hemoglobin in 6 hours Status: Acute (2) AMA (advanced maternal age) multigravida 35+: Status: Acute (3) care following vaginal delivery: Problem details: Bakri removed Garvin removed routine orders Status: Acute (4) hemorrhage: Problem details: Status post Bakri balloon placement and now removal. Routine post orders. Status: Acute Time Spent With Patient Time: Total time spent is greater than 50% in coordination of care (as documented) at patient's floor/unit and/or counseling patient: Time with patient: less than 15 minutes
[2025-01-16 19:13] LABS: Basophils # (Auto) 0.1 Thou/mm3 (0.0-0.2); Basophils % (Auto) 1 % (0-2.5); Eosinophils # (Auto) 0.1 Thou/mm3 (0.0-0.5); Eosinophils % (Auto) 1 % (0-10); Hematocrit 28.5 % (36.0-46.0); Immature Granulocytes Auto 0.14 Thou/mm3 (0.00-0.00); Lymphocytes # (Auto) 2.7 Thou/mm3 (1.0-4.8); Lymphocytes % (Auto) 25 % (10-50); Mean Corpuscular HGB Conc 30.9 g/dl (31.0-37.0); Mean Corpuscular Hemoglobin 23.3 pg (25.0-35.0); Mean Corpuscular Volume 75 fL (80-100); Monocytes # (Auto) 0.9 Thou/mm3 (0.0-0.8); Monocytes % (Auto) 8 % (0-12); Neutrophils # (Auto) 6.8 Thou/mm3 (1.8-7.7); Neutrophils % (Auto) 64 % (37-80); Nucleated Red Blood Cell # 0.03 Thou/mm3 (0.00-0.00); Nucleated Red Blood Cell % 0 /100 WBC (0); Platelet Count 283 Thou/mm3 (140-440); RDW Standard Deviation 48.6 fL (36.4-46.3); Red Blood Count 3.78 Miln/mm3 (4.00-5.20); White Blood Count 10.7 Thou/mm3 (3.6-11.0)
[2025-01-16 19:24] LABS: Hemoglobin 8.8 g/dL (12.0-16.0)
[2025-01-17 00:30] VITALS: BP 112/68; PULSE 55; RESP 16; TEMP 36.7; O2SAT 99
[2025-01-17 03:51] VITALS: BP 114/71; PULSE 53; RESP 18; TEMP 36.8; O2SAT 100
[2025-01-17 06:04] LABS: Basophils # (Auto) 0.1 Thou/mm3 (0.0-0.2); Basophils % (Auto) 1 % (0-2.5); Eosinophils # (Auto) 0.2 Thou/mm3 (0.0-0.5); Eosinophils % (Auto) 2 % (0-10); Hematocrit 25.8 % (36.0-46.0); Immature Granulocytes Auto 0.16 Thou/mm3 (0.00-0.00); Lymphocytes # (Auto) 2.7 Thou/mm3 (1.0-4.8); Lymphocytes % (Auto) 33 % (10-50); Mean Corpuscular HGB Conc 30.6 g/dl (31.0-37.0); Mean Corpuscular Hemoglobin 22.8 pg (25.0-35.0); Mean Corpuscular Volume 75 fL (80-100); Monocytes # (Auto) 0.7 Thou/mm3 (0.0-0.8); Monocytes % (Auto) 8 % (0-12); Neutrophils # (Auto) 4.5 Thou/mm3 (1.8-7.7); Neutrophils % (Auto) 54 % (37-80); Nucleated Red Blood Cell # 0.03 Thou/mm3 (0.00-0.00); Nucleated Red Blood Cell % 0 /100 WBC (0); Platelet Count 252 Thou/mm3 (140-440); RDW Standard Deviation 47.9 fL (36.4-46.3); Red Blood Count 3.46 Miln/mm3 (4.00-5.20); White Blood Count 8.2 Thou/mm3 (3.6-11.0)
[2025-01-17 08:16] LABS: Hemoglobin 7.9 g/dL (12.0-16.0)
[2025-01-17 08:21] VITALS: BP 144/83; PULSE 74; RESP 18; TEMP 36.5; O2SAT 99
[2025-01-17] MEDS: DOCUSATE SOD 100 MG CAPSULE PO (08:52)
[2025-01-17] MEDS: IBUPROFEN TAB 400 MG TABLET 800 MG PO (08:52)
[2025-01-17 11:15] VITALS: BP 143/81; PULSE 60; RESP 18; TEMP 36.4; O2SAT 100
--- NOTE | 2025-01-17 11:19 | PC.NURSE ---
1115: RN ATTEMPTED TO TAKE BREAST FEEDING FRIENDLY SURVEY IN FOR PATIENT BUT TRUSS DRIVER HELPER WAS BEDSIDE. AFTER TRUSS DRIVER HELPER WAS DONE RN WENT IN TO CHECK VITAL SIGNS AND OFFER SURVEY AT THAT TIME. PATIENT C/O BEING IN A LOT OF PAIN AND FRUSTRATED WITH THE AMOUNT OF DISRUPTIONS. BABY IS ASLEEP AT THIS TIME AND SHE IS REFUSING TO LET RN CHECK VITAL SIGNS ON HER. RN DID ASK HER IF INFANT HAD A RECENT FEEDING AND SHE CONFIRMED A RECENT FEED AT 1045 BREAST AND BOTTLE.
[2025-01-17] MEDS: HYDROcodone/APAP 5/325 TABLET 1 TAB PO ×3 (11:36→20:06)
[2025-01-17 15:24] VITALS: BP 145/89; PULSE 62; RESP 16; TEMP 36.4; O2SAT 100
[2025-01-17] MEDS: KETOROLAC INJ 60 MG/2 ML VIAL 30 MG IM (15:26)
--- NOTE | 2025-01-17 16:40 | PC.SS ---
COTTON PICKING MACHINE OPERATOR conducted bedside contact with the patient to address nursing referral indicating patient was late to care and positive for THC/Meth during services.? Patient?s toxicology report negative upon admission.? COTTON PICKING MACHINE OPERATOR introduced self and role.? COTTON PICKING MACHINE OPERATOR discussed basis of referral with the patient.? Patient confirmed use of THC and Meth during .? Patient informed COTTON PICKING MACHINE OPERATOR that initial did not know she was .? Upon confirmation, patient contemplated not having the infant.? Upon confirmation patient ceased recreational drug use. ?Patient plans on discontinuing use of recreational drugs. ?Upon making decision to not forfeit , patient received OB services from Dr. Christensen.? , Arlin; is the patient?s 5th child.? Infant delivered naturally. ?Patient plans on combo feeding .? FOB, Luis Parr will be involved with the rearing of the .? Patient reports past history of mental health.? Patient reports no impairment with daily functioning.? Patient is receiving SNAP and TANF.? Patient is not receiving WIC.? Patient denies history of alcohol/drug abuse.? Patient denies history of domestic violence.? Patient denies history of CWS intervention.? Patient has access to appropriate supplies and equipment. Patient?s mother will provide transportation upon discharge.? Patient describes possessing support system consisting of FOB, mother and extended family.? COTTON PICKING MACHINE OPERATOR provided community resources to include [employer] and [employer].? No further intervention required at this time, social media intern will be available to address any further concerns.? COTTON PICKING MACHINE OPERATOR updated bedside nurse.?
[2025-01-17 16:47] LABS: Basophils # (Auto) 0.1 Thou/mm3 (0.0-0.2); Basophils % (Auto) 1 % (0-2.5); Eosinophils # (Auto) 0.2 Thou/mm3 (0.0-0.5); Eosinophils % (Auto) 2 % (0-10); Hematocrit 28.9 % (36.0-46.0); Hemoglobin 8.9 g/dL (12.0-16.0); Immature Granulocytes Auto 0.14 Thou/mm3 (0.00-0.00); Lymphocytes # (Auto) 2.3 Thou/mm3 (1.0-4.8); Lymphocytes % (Auto) 22 % (10-50); Mean Corpuscular HGB Conc 30.8 g/dl (31.0-37.0); Mean Corpuscular Hemoglobin 23.1 pg (25.0-35.0); Mean Corpuscular Volume 75 fL (80-100); Monocytes # (Auto) 0.7 Thou/mm3 (0.0-0.8); Monocytes % (Auto) 7 % (0-12); Neutrophils # (Auto) 7.0 Thou/mm3 (1.8-7.7); Neutrophils % (Auto) 67 % (37-80); Nucleated Red Blood Cell # 0.02 Thou/mm3 (0.00-0.00); Nucleated Red Blood Cell % 0 /100 WBC (0); Platelet Count 304 Thou/mm3 (140-440); RDW Standard Deviation 48.3 fL (36.4-46.3); Red Blood Count 3.85 Miln/mm3 (4.00-5.20); White Blood Count 10.3 Thou/mm3 (3.6-11.0)
--- NOTE | 2025-01-17 17:02 | XR_ITS ---
Examination: Retroperitoneal ultrasound, complete Technique: Multiple high resolution grayscale images of the retroperitoneum obtained, including kidneys and bladder. Exam date and time: January 17, 2025, 1703 hours INDICATIONS: Bilateral flank pain today, FINDINGS: Right kidney 15.4 cm renal cortex 1.3 cm Duplicated collecting system Multiple calculi, the largest 18 mm Left kidney 13.2 cm renal cortex 1.9 cm Multiple calculi, the largest 9 mm Contracted urinary bladder no bladder mass IMPRESSION: Multiple bilateral nonobstructing renal calculi
--- NOTE | 2025-01-17 17:33 | PD.LDDS ---
DS: Providers Provider Date of admission: 01/15/25 01:46 Primary care physician: MATTHEW Palmer MD Admitting Provider: Irlanda Dolan MD (OB Clinic) Attending Provider on Admission: Yoli Cifuentes MD Consults: 01/15/25 21:26 Referral Routine Comment: Attending Provider on DC: Yoli Cifuentes MD Discharging Provider: Yoli Cifuentes MD Anticipated date of discharge: 01/17/25 DS: Diagnosis Discharge Diagnosis (1) hemorrhage: Status: Acute (2) care following vaginal delivery: Status: Acute (3) Anemia affecting : Status: Acute (4) AMA (advanced maternal age) multigravida 35+: Status: Acute (5) Polysubstance abuse: Status: Acute (6) Kidney stones: Status: Acute Problem List Completed Was Problem List Reviewed/Reconciled?: Yes Summary/Hosp Course Brief History: The patient is a 34-year-old -0-1-4 history of stillbirth, with scant care this . She was seen first at 25 weeks through the ER I admitted her for pyelonephritis. At that time her UDS was positive for meth and marijuana. Patient did have a visit or [address] Christensen at the [facility]. She presents around 3 in the morning for a scheduled induction of labor. She was 3 cm dilated on presentation. Unknown group B strep. Plan will be for Cytotec induction of labor. On admission her labs are normal. Patient is anemic with a hemoglobin of 8.0. All PIH labs are normal with the exception of a UPCR ratio of 0.37 corresponding to 450 mg of protein in a 24-hour urine. Patient started on ampicillin for unknown strep. Drug screen is negative this admission. Peripartum Data Delivery Method: Normal Vaginal Delivery Episiotomy Description: None complications: transfusion and other (PPH needing Bhakri balloon / it was removed on 01/16/2025 /Hb is stable / c/o backpain responds to Toradol and [place] / sites h/o kidneystones / renal US ordered) Time Spent with Patient Time attestation: Total time spent providing and/or coordinating discharge services:consults fom anesthesia / requesting renal Us / medication orders Time spent: Greater than 30 minutes Specific discharge activities: drink a lot of water / take oral iron / follow up in 2to 3 weeks with her Ob Exam Vital Signs Temp Pulse Resp BP Pulse Ox O2 Del Method 97.6 F 62 16 145/89 H 100 Room Air 01/17/25 15:24 01/17/25 15:24 01/17/25 15:24 01/17/25 15:24 01/17/25 15:24 01/17/25 15:24 Narrative Exam alert x3 chest clear CVS rrr NO THYROMEGALY Uterus is nontender Uterus is firm Just below the umbilicus Bowel sounds present Abdomen soft no hernias noted/no CVAT No calf tenderness Edema Discharge Plan Plan Patient Disposition: HOME (Self Care) Disposition Comment: discharge in morning after 8 am on 01/18/2025 Patient condition on transfer: Stable Prescriptions/Referrals Prescriptions/Med Rec: New hydrocodone-acetaminophen 5-325 mg Tablet 1 tab PO Q4HR MDD 4 PRN (Reason: Patient rated pain 7 to 8) Qty: 14 0RF ibuprofen 400 mg Tablet 800 mg PO Q8HR PRN (Reason: Pain Scale 4-6 (Moderate) Qty: 30 0RF hydrocodone-acetaminophen 5-325 mg tablet 1 tab PO Q6H MDD 4 PRN (Reason: pain) Qty: 14 0RF ibuprofen 800 mg tablet 800 mg PO TID PRN (Reason: pain) Qty: 30 0RF hydrocodone-acetaminophen 5-325 mg tablet 1 tab PO Q6H MDD 4 PRN (Reason: pain) Qty: 14 0RF ibuprofen 800 mg tablet 800 mg PO TID PRN (Reason: pain) Qty: 30 0RF Continued ferrous sulfate 325 mg (65 mg iron) tablet 325 mg PO BID 90 Days Qty: 180 2RF Referrals: Chuck Scott MD [Primary Care Provider, Family Practice] Patient/Caregiver Discharge Instructions Discharge Activity: activity as tolerated Other Discharge Activity Instructions:: pelvic rest x 6 weeks Education Materials: After a Vaginal , Anemia During , : Caring for Yourself, Change Expect Parents, Hemorrhage Print Language: Togolese Stand Alone Forms: Monik Award Info., Patient Portal Info Letter Discharge Order Discharge Orders: Discharge (Routine); Ordered 01/18/25 Ordered By: Yoli Cifuentes Planned Discharge Date 01/17/25 However patient needed a prescription for pain medication and also did not have a ride and will be discharged on 01/18/2025
[2025-01-17 19:52] VITALS: BP 145/87; PULSE 65; RESP 18; TEMP 36.8; O2SAT 100
[2025-01-18 03:42] VITALS: BP 123/69; PULSE 61; RESP 16; TEMP 36.7; O2SAT 98
[2025-01-18 08:00] VITALS: BP 131/79; PULSE 62; RESP 18; TEMP 36.8; O2SAT 99
[2025-01-18] MEDS: DOCUSATE SOD 100 MG CAPSULE PO (08:15)
[2025-01-18] MEDS: HYDROcodone/APAP 5/325 TABLET 1 TAB PO (08:15)
[2025-01-18] MEDS: DIPHTH,PERTUSS(ACELL),TET VAC 0.5 ML SYR- ADULT IMi (08:39)
== END 2025-01-18 10:04 | disposition home or self-care (01) | DRG 542 ==
LOC: S4SX 20:59 → S4NX 22:51
PROVIDERS: Obstetrics & Gynecology; Admitting Provider Obstetrics & Gynecology; PCP Family Medicine; Visit Provider Obstetrics & Gynecology
DX: O99.02 Anemia complicating childbirth (principal); Z37.0 Single live birth; Z3A.39 39 weeks gestation of pregnancy; O23.03 Infections of kidney in pregnancy, third trimester; N20.0 Calculus of kidney; O72.1 Other immediate postpartum hemorrhage
CPT/HCPCS: 36415; 76770; 76805; 80307; 85025; 86780; 86850; 86900; 86901; 86923; 90715; J0290; J0689; J1171; J1885; J2405; J2590; J2795; J3490; J7050; J7120; P9016; S0191; A9270